=== PATIENT | female | born 1935 | race Caucasian/White ===

== ENCOUNTER 2019-09-03 13:04 | Emergency (ER) | payer MEDICARE ==
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
[2019-09-03 15:23] LABS: HEMATOCRIT 33.7 % (36.0-47.0); HEMOGLOBIN 10.6 g/dL (12.0-15.5); MEAN CORPUSCULAR HEMOGLOBIN 23.3 pg (27.0-33.4); MEAN CORPUSCULAR HGB CONC 31.4 g/dL (32.0-36.0); MEAN CORPUSCULAR VOLUME 74 fl (80-97); PLATELET COUNT 344 10^3/uL (150-450); RED BLOOD COUNT 4.53 10^6/uL (3.72-5.28); RED CELL DISTRIBUTION WIDTH 19.5 % (11.5-14.0); WHITE BLOOD COUNT 5.9 10^3/uL (4.0-10.5)
[2019-09-03 15:42] LABS: ALBUMIN 3.4 g/dL (3.5-5.0); ALKALINE PHOSPHATASE 118 U/L (38-126); ANION GAP 7 (5-19); ASPARTATE AMINO TRANSFERASE 54 U/L (14-36); BILIRUBIN,DIRECT 0.3 mg/dL (0.0-0.4); BILIRUBIN,TOTAL 1.2 mg/dL (0.2-1.3); BLOOD UREA NITROGEN 8 mg/dL (7-20); CALCIUM 8.9 mg/dL (8.4-10.2); CARBON DIOXIDE 27 mmol/L (22-30); CHLORIDE 107 mmol/L (98-107); CREATINE KINASE 365 U/L (30-135); GLUCOSE 89 mg/dL (75-110); POTASSIUM 4.2 mmol/L (3.6-5.0); TOTAL PROTEIN 7.4 g/dL (6.3-8.2)
[2019-09-03 15:45] LABS: ABSOLUTE LYMPHOCYTES# (MANUAL) 1.5 10^3/uL (0.5-4.7); ABSOLUTE MONOCYTES # (MANUAL) 0.6 10^3/uL (0.1-1.4); BASOPHILS % (MANUAL) 0 % (0-2); EOSINOPHILS % (MANUAL) 3 % (0-6); LYMPHOCYTES % (MANUAL) 25 % (13-45); MONOCYTES % (MANUAL) 10 % (3-13); SEGMENTED NEUTROPHILS % (MAN) 62 % (42-78); TOTAL CELLS COUNTED 100
[2019-09-03 15:46] LABS: ANISOCYTOSIS 2+; HYPOCHROMASIA 1+; TARGET CELLS 1+
[2019-09-03 15:47] LABS: PLATELET COMMENT ADEQUATE
[2019-09-03] MEDS: BUSPIRONE HCL 10 MG TABLET PO SCH ×2 (16:14→18:45)
[2019-09-03] MEDS: DIVALPROEX SODIUM 250 MG TABLET.DR PO SCH ×2 (16:15→18:45)
[2019-09-03 16:17] LABS: APPEARANCE,URINE CLEAR; BILIRUBIN,URINE NEGATIVE (NEGATIVE); COLOR,URINE YELLOW; GLUCOSE, URINE NEGATIVE (NEGATIVE); KETONES,URINE NEGATIVE (NEGATIVE); LEUKOCYTE ESTERASE,URINE MODERATE (NEGATIVE); NITRITE,URINE NEGATIVE (NEGATIVE); PROTEIN,URINE NEGATIVE (NEGATIVE)
--- NOTE | 2019-09-03 16:59 | PSYCHOLOGICAL NOTE ---
Psych Note - Psych Note Date seen by psych provider: 09/03/18 Psych Note: Medication recommendations per [facility]'s contracted psychiatrist, Dr. Lyndsay MD are as follows: 1. please stop any home psychiatric medications 2. Depakote 250mg twice daily for mood stabilization 3. Buspar 10mg twice daily for anxiety and agitation Diagnosis probable major neurocognitive disorder Impression/Plan: Patient is cleared from acute psychiatric services. 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 Medication recommendations have been provided. Per patient's daughter, the patient's was admitted to a [facility] yesterday. There is concern the patient is unable to care for herself; patient reportedly now lives in [place] alone. Her daughter lives in [place]. Per patient's daughter there is an open APS case. Dr. Hoyt was consulted on the care and management of this patient; attending physician is in agreement with recommendations and disposition.
--- NOTE | 2019-09-03 18:40 | EKG REPORT ---
SEVERITY:- ABNORMAL ECG - SINUS RHYTHM LEFT AXIS DEVIATION ABNRM R PROG, CONSIDER ASMI OR LEAD PLACEMENT BORDERLINE T ABNORMALITIES, ANTERIOR LEADS : Confirmed by: Kong Nava MD 03-Sep-2019 18:39:54
[2019-09-03] MEDS ORDERED: CYCLOBENZAPRINE HCL 10 MG TABLET PO PRN (20:17)
[2019-09-03] MEDS: METFORMIN HCL 500 MG TABLET PO SCH (21:28)
[2019-09-03] MEDS: RISPERIDONE 0.25 MG TABLET PO SCH (21:28)
[2019-09-04] MEDS ORDERED: LISINOPRIL 10 MG TABLET PO SCH (10:00)
[2019-09-04] MEDS ORDERED: PIOGLITAZONE HCL 15 MG TABLET PO SCH (10:00)
[2019-09-04] MEDS: METFORMIN HCL 500 MG TABLET PO SCH (10:32)
[2019-09-04] MEDS: DIVALPROEX SODIUM 250 MG TABLET.DR PO SCH (10:32)
[2019-09-04] MEDS: BUSPIRONE HCL 10 MG TABLET PO SCH (10:32)
[2019-09-04] MEDS: RISPERIDONE 0.25 MG TABLET PO SCH (10:32)
--- NOTE | 2019-09-04 10:33 | ER Document Report ---
Doctor's Note Notes: 09/04/19 10:33 84-year-old female presents to the emergency department with reports of hallucinations dementia. Behavioral health and social secretary have both evaluated patient. Patient's daughter is here to take patient home. She is updated on plan of care to include discharge home with community resources to include community paramedics Meals on Wheels. Priti the social secretary is arranging for the services. Patient is calm comfortable no distress. Patient will be discharged home under the care of her daughter. PHYSICAL EXAMINATION: GENERAL: Well-appearing and in no acute distress HEAD: Atraumatic, normocephalic. ENT: nares patent, Moist mucous membranes. NECK: Normal range of motion, supple LUNGS: Respiratory rate even unlabored HEART: Regular rate ABDOMEN: No complaints of abdominal pain eating drinking voiding without problems EXTREMITIES: Normal range of motion NEUROLOGICAL: Cranial nerves grossly intact. PSYCH: Normal mood, normal affect. Calm SKIN: Warm, Dry Patient discharged in the care of her daughter.
[2019-09-04] MEDS ORDERED: COLESTIPOL HCL 1 GM TABLET PO SCH (11:00)
[2019-09-04 11:01] VITALS: BP 117/60
== END 2019-09-04 10:58 | disposition home or self-care (01) ==
LOC: ER 13:04
DX: G30.1 Alzheimer's disease with late onset (principal); F02.81 Dementia in other diseases classified elsewhere, unspecified severity, with behavioral disturbance; S60.212A Contusion of left wrist, initial encounter; S50.02XA Contusion of left elbow, initial encounter; W18.30XA Fall on same level, unspecified, initial encounter; Y92.003 Bedroom of unspecified non-institutional (private) residence as the place of occurrence of the external cause; Z91.81 History of falling; E78.00 Pure hypercholesterolemia, unspecified; I10 Essential (primary) hypertension; E11.9 Type 2 diabetes mellitus without complications; Z60.2 Problems related to living alone
CPT/HCPCS: 93005; 99284; 36415; 82550; 83735; 84443; 85025; 80053; 81001; 84484; 93010; A9270 ×11; J3490

== ENCOUNTER 2019-12-02 11:33 | Inpatient (IN) | payer MEDICARE ==
[2019-12-02 12:13] LABS: ABSOLUTE LYMPHOCYTES (AUTO) 2.6 10^3/uL (0.5-4.7); ABSOLUTE MONOCYTES (AUTO) 2.1 10^3/uL (0.1-1.4); ABSOLUTE NEUT (AUTO) 9.5 10^3/uL (1.7-8.2); BASOPHILS % (AUTO) 0.3 % (0-2); HEMATOCRIT 33.8 % (36.0-47.0); HEMOGLOBIN 10.7 g/dL (12.0-15.5); LYMPHOCYTES % (AUTO) 18.3 % (13-45); MEAN CORPUSCULAR HEMOGLOBIN 24.3 pg (27.0-33.4); MEAN CORPUSCULAR HGB CONC 31.8 g/dL (32.0-36.0); MEAN CORPUSCULAR VOLUME 77 fl (80-97); MONOCYTES % (AUTO) 14.5 % (3-13); PLATELET COUNT 388 10^3/uL (150-450); RED BLOOD COUNT 4.42 10^6/uL (3.72-5.28); RED CELL DISTRIBUTION WIDTH 17.8 % (11.5-14.0); SEGMENTED NEUTROPHILS % (AUTO) 66.9 % (42-78); TOTAL CELLS COUNTED % (AUTO) 100 %; WHITE BLOOD COUNT 14.1 10^3/uL (4.0-10.5)
[2019-12-02] MEDS ORDERED: CEFEPIME 2 GM/D5W RTU 2 GM/50 ML RTUPB IV ONE (12:24)
[2019-12-02] MEDS ORDERED: NORMAL SALINE 1000 ML 1,000 ML IV ONE ×2 (12:24)
[2019-12-02] MEDS ORDERED: AZITHROMYCIN 250 MG TABLET PO ONE (12:24)
[2019-12-02 12:32] LABS: ALBUMIN 3.6 g/dL (3.5-5.0); ALKALINE PHOSPHATASE 142 U/L (38-126); ANION GAP 10 (5-19); ASPARTATE AMINO TRANSFERASE 35 U/L (14-36); BILIRUBIN,DIRECT 0.4 mg/dL (0.0-0.4); BILIRUBIN,TOTAL 1.2 mg/dL (0.2-1.3); BLOOD UREA NITROGEN 17 mg/dL (7-20); CALCIUM 8.9 mg/dL (8.4-10.2); CARBON DIOXIDE 24 mmol/L (22-30); CHLORIDE 102 mmol/L (98-107); GLUCOSE 166 mg/dL (75-110); POTASSIUM 4.5 mmol/L (3.6-5.0); TOTAL PROTEIN 7.8 g/dL (6.3-8.2)
[2019-12-02 12:38] LABS: INTERNATIONAL RATION (INR) 1.14; PROTHROMBIN TIME 14.7 SEC (11.4-15.4)
--- NOTE | 2019-12-02 13:13 | RADIOLOGY REPORT (SQ) ---
EXAM DESCRIPTION: CHEST SINGLE VIEW IMAGES COMPLETED DATE/TIME: 12/02/2019 1:03 pm REASON FOR STUDY: fever COMPARISON: None. EXAM PARAMETERS: NUMBER OF VIEWS: One view. TECHNIQUE: Single frontal radiographic view of the chest acquired. RADIATION DOSE: NA LIMITATIONS: None. FINDINGS: LUNGS AND PLEURA: No consolidation or effusions. No pneumothorax. Nodular opacity overly ing the right hemidiaphragm is consistent with confluence of shadows including an anterior rib. MEDIASTINUM AND HILAR STRUCTURES: No masses. Contour normal. HEART AND VASCULAR STRUCTURES: Heart normal in size. Normal vasculature. BONES: No acute findings. HARDWARE: None in the chest. OTHER: No other significant finding. IMPRESSION: NO ACUTE RADIOGRAPHIC FINDING IN THE CHEST. TECHNICAL DOCUMENTATION: JOB ID: [id number] 2010 [employer]- All Rights Reserved Reading location - IP/workstation name: [email or web address]
[2019-12-02 13:16] LABS: APPEARANCE,URINE SLIGHTLY-CLOUDY; BILIRUBIN,URINE NEGATIVE (NEGATIVE); COLOR,URINE YELLOW; GLUCOSE, URINE NEGATIVE (NEGATIVE); KETONES,URINE TRACE mg/dL (NEGATIVE); PROTEIN,URINE NEGATIVE (NEGATIVE); URINE SPECIFIC GRAVITY 1.015; UROBILINOGEN,URINE NEGATIVE mg/dL (<2.0)
[2019-12-02 13:31] LABS: VENOUS BLOOD BASE EXCESS 2.9 mmol/L; VENOUS BLOOD HCO3 26.8 mmol/L (20-32); VENOUS BLOOD PCO2 37.6 mmHg (35-63); VENOUS BLOOD PH 7.47 (7.30-7.42)
[2019-12-02 13:46] LABS: A TYPE INFLUENZA AG NEGATIVE (NEGATIVE); B INFLUENZA AG NEGATIVE (NEGATIVE)
--- NOTE | 2019-12-02 14:49 | ER Document Report ---
ED Fever - General Chief Complaint: Fever Stated Complaint: COUGH Time Seen by Provider: 12/02/19 12:00 Primary Care Provider: NOELLE HEREDIA MD [Primary Care Provider] - Follow up as needed Mode of Arrival: Medic Information source: Patient TRAVEL OUTSIDE OF THE [place] IN LAST 30 DAYS: No - HPI Notes: Patient is brought by ambulance from home for fever and altered mental status. Daughter states that patient has been staying with her while she awaits placement in a nursing care facility. She states for last 2 days patient has had some altered mental status. She states she has been more confused than normal. Patient does have baseline dementia and is a poor historian. Patient apparently today did develop fever and has had a cough at home. No known vomiting or diarrhea. No known rashes. No known falls or trauma. The symptoms have been mild to moderate apparently. There is no known radiation of symptoms. The symptoms have been intermittent. Nothing known that makes them better or worse. She did receive Tylenol prior to arrival. - Related Data Allergies/Adverse Reactions: No Known Allergies Allergy (Verified 12/02/19 12:27) Past Medical History - General Information source: Patient, Emergency Med Personnel - Social History Smoking Status: Never Smoker Frequency of alcohol use: None Drug Abuse: None Family History: Reviewed & Not Pertinent Patient has suicidal ideation: No Patient has homicidal ideation: No - Past Medical History Cardiac Medical History: Reports: Hx Hypercholesterolemia, Hx Hypertension Endocrine Medical History: Reports: Hx Diabetes Mellitus Type 2 Psychiatric Medical History: Reports: Hx Dementia Past Surgical History: Reports: Hx Cholecystectomy, Hx Herniorrhaphy, Hx Orthopedic Surgery, Other - Splenectomy Review of Systems - Review of Systems -: Yes ROS unobtainable due to patient's medical condition - Review of symptoms is unobtainable due to patient's dementia Physical Exam - Vital signs Vitals: Resp Pulse Ox 25 H 96 12/02/19 11:45 12/02/19 11:45 Interpretation: Normal - General General appearance: Appears well, Alert - HEENT Head: Normocephalic, Atraumatic Eyes: Normal Pupils: PERRL - Respiratory Respiratory status: No respiratory distress Chest status: Nontender Breath sounds: Normal Chest palpation: Normal - Cardiovascular Rhythm: Regular Heart sounds: Normal auscultation Murmur: No - Abdominal Inspection: Normal Distension: No distension Bowel sounds: Normal Tenderness: Nontender Organomegaly: No organomegaly - Back Back: Normal, Nontender - Extremities General upper extremity: Normal inspection, Nontender, Normal color, Normal ROM, Normal temperature General lower extremity: Normal inspection, Nontender, Normal color, Normal ROM, Normal temperature, Normal weight bearing. No: Prince's sign - Neurological Cognition: Confused Orientation: Disoriented to place, Disoriented to time [place] Coma Scale Eye Opening: Spontaneous [place] Coma Scale Verbal: Confused Jess Coma Scale Motor: Obeys Commands Jess Coma Scale Total: 14 Speech: Normal Motor strength normal: LUE, RUE, LLE, RLE Sensory: Normal - Psychological Associated symptoms: Normal affect, Normal mood - Skin Skin Temperature: Warm Skin Moisture: Dry Skin Color: Normal Course - Re-evaluation Re-evalutation: 12/02/19 15:00 Patient presents with altered mental status which daughter states is almost back to normal. It is hard for me to ascertain due to patient's underlying dementia. However patient is pleasant and talkative although confused. She does have fever without apparent source at this time. She has been covered with antibiotics. Coronavirus testing has been initiated. I have discussed the case with the hospitalist who is going to see the patient in consultation in the emergency department. - Vital Signs Vital signs: Temp Pulse Resp BP Pulse Ox 101 F H 18 155/79 H 95 12/02/19 12:46 12/02/19 14:01 12/02/19 14:01 12/02/19 14:01 - Laboratory Result Diagrams: 12/02/19 11:18 12/02/19 11:18 Laboratory results interpreted by me: 12/02/19 12/02/19 12/02/19 11:18 11:18 11:55 WBC 14.1 H Hgb 10.7 L Hct 33.8 L MCV 77 L MCH 24.3 L MCHC 31.8 L RDW 17.8 H Nye % (Auto) 14.5 H Absolute Neuts (auto) 9.5 H Absolute Monos (auto) 2.1 H VBG pH Sodium 136.3 L Glucose 166 H Lactic Acid 2.7 H Alkaline Phosphatase 142 H Urine Ketones 12/02/19 12/02/19 12:15 13:15 WBC Hgb Hct MCV MCH MCHC RDW Nye % (Auto) Absolute Neuts (auto) Absolute Monos (auto) VBG pH 7.47 H Sodium Glucose Lactic Acid Alkaline Phosphatase Urine Ketones TRACE H - Diagnostic Test Radiology reviewed: Image reviewed, Reports reviewed - Blood in urine though he said Discharge - Discharge Clinical Impression: Confusion Fever Qualifiers: Fever type: due to other condition Qualified Code(s): R50.81 - Fever presenting with conditions classified elsewhere Condition: Stable Disposition: ADMITTED INPATIENT Admitting Provider: Alexys (Hospitalist) Unit Admitted: Medical Floor Referrals: NOELLE HEREDIA MD [Primary Care Provider] - Follow up as needed
[2019-12-02] MEDS ORDERED: ACETAMINOPHEN 325 MG TABLET PO PRN ×2 (15:29)
[2019-12-02] MEDS ORDERED: ONDANSETRON HCL INJ/PF 4 MG/2 ML SDV IV PRN (15:29)
[2019-12-02] MEDS ORDERED: GLUCAGON,HUMAN RECOMB 1 MG INJ IM PRN (15:42)
[2019-12-02] MEDS ORDERED: DEXTROSE 40% GEL 15 GM TUBE PO PRN ×2 (15:42)
[2019-12-02] MEDS ORDERED: DEXTROSE 50%-WATER 25 GM/50 ML DISP.SYRIN IV PRN ×2 (15:42)
--- NOTE | 2019-12-02 16:18 | RADIOLOGY REPORT (SQ) ---
EXAM DESCRIPTION: CT HEAD WITHOUT IMAGES COMPLETED DATE/TIME: 12/02/2019 4:02 pm REASON FOR STUDY: falls, head lac, encephalopathy COMPARISON: None. TECHNIQUE: Axial images acquired through the brain without intravenous contrast. Images reviewed wi th bone, brain and subdural windows. Additional sagittal and coronal reconstructions were generated. Images stored on PACS. All CT scanners at this facility use dose modulation, iterative reconstruction, and/or weight based d osing when appropriate to reduce radiation dose to as low as reasonably achievable (ALARA). [facility]: Dose Right [facility]: CareDose [facility]: Dose Right [facility]: Teradose 4D [facility]: [employer] RADIATION DOSE: CT Rad equipment meets quality standard of care and radiation dose reduction techniq ues were employed. CTDIvol: 53.2 mGy. DLP: 1017 mGy-cm. mGy. LIMITATIONS: None. FINDINGS: VENTRICLES: Normal size and contour. CEREBRUM: No parenchymal hemorrhage. There are large bilateral subdural hematomas with varying ages of blood products. There is acute blood anteriorly on the right. Layering chronic blood products bi lateral posteriorly and evidence of old hemorrhage. Slight midline shift from left to right. CEREBELLUM: No masses. No hemorrhage. No alteration of density. No evidence for acute infarction. EXTRAAXIAL SPACES: As above. ORBITS AND GLOBE: No intra- or extraconal masses. Normal contour of globe without masses. CALVARIUM: No fracture. PARANASAL SINUSES: No fluid or mucosal thickening. SOFT TISSUES: No mass or hematoma. OTHER: No other significant finding. IMPRESSION: Large bilateral subdural hematomas with varying age blood products as described. No sku ll fracture. Mild midline shift from right to left due to the size of the right subdural hematoma co mpared to the left. The right subdural hematoma measures up to 2.6 cm. The left measures up to 1.8 cm. EVIDENCE OF ACUTE STROKE: NO. COMMENT: Pertinent findings on the imaging study reported as a CRITICAL RESULT to LARA Prakash at16:11 on 12/02/2019. Category of Critical Result: Bilateral subdural hematomas. Quality ID # 436: Final reports with documentation of one or more dose reduction techniques (e.g., Au tomated exposure control, adjustment of the mA and/or kV according to patient size, use of iterative reconstruction technique) TECHNICAL DOCUMENTATION: JOB ID: [id number] 2010 [employer]- All Rights Reserved Reading location - IP/workstation name: [email or web address]
--- NOTE | 2019-12-02 16:23 | EKG REPORT ---
SEVERITY:- ABNORMAL ECG - SINUS RHYTHM VENTRICULAR PREMATURE COMPLEX LEFT ATRIAL ABNORMALITY LEFT AXIS DEVIATION : Confirmed by: Randy Key 02-Dec-2019 16:22:19
--- NOTE | 2019-12-02 16:41 | PDOC H&P ---
History of Present Illness Admission Date/PCP: 12/02/19 15:11 NOELLE HEREDIA MD Patient complains of: Altered mental status History of Present Illness: CHEY DENISE is a 84 year old female with a history of Alzheimer's dementia, diabetes mellitus type 2, hypertension, presents to the hospital via EMS for evaluation of altered mental status and fever. Patient lives with her daughter. Unable to obtain history from patient given mental status so HPI ob tained from patient's daughter Gianna via phone call. 5 days ago, patient began exhibiting symptoms of fatigue, talking less and becoming more apathetic. She also was experiencing falls frequently. Patient did not seem to care about the fact that she was falling more often and in some occasions hit her head. Patient's daughter called EMS over the weekend after patient experienced a fall and patient was recommended for monitoring at home. Yesterday, patient became more altered and was noted to be tachypneic. EMS was called again and patient was noted to be having a fever of 101F. According to daughter, patient has not exhibited any significant respiratory symptoms and denies any rhinorrhea, cough, shortness of breath, nasal congestion. Did have some diarrhea. Of note, patient's daughter expresses that her plan was to send patient to an assisted living facility to care for her but after they found out that patient's son had flown in from [place], the assisted living facility who requested a 14-day quarantine before patient could be admitted into assisted living. Patient's son has since then flown back and patient has been a 14-day quarantine which was about to end before fifth patient developed a fever. Patient daughter and son have not had any respiratory symptoms or fever since the visit. Past Medical History Cardiac Medical History: Reports: Hyperlipidema, Hypertension Endocrine Medical History: Reports: Diabetes Mellitus Type 2 Psychiatric Medical History: Reports: Dementia Past Surgical History Past Surgical History: Reports: Cholecystectomy, Herniorrhaphy, Orthopedic Surgery, Other - Splenectomy Social History Smoking Status: Never Smoker - Advance Directive Resuscitation Status: Do Not Resuscitate - dnr/dni confirmed by Daughter Surrogate healthcare decision maker:: Gianna Denise Family History Family History: Hypertension Parental Family History Reviewed: Yes Children Family History Reviewed: Unknown Sibling(s) Family History Reviewed.: Unknown Medication/Allergy Home Medications: Cholecalciferol (Vitamin D3) [Vitamin D3 1000 Unit Tablet] 2,000 unit PO DAILY 03/31/20 Colestipol HCl [Colestid 1 gm Tablet] 1 gm PO BID 12/02/19 Cyclobenzaprine HCl 5 mg PO QHS 12/02/19 Lisinopril 20 mg PO DAILY 12/02/19 Metformin HCl [Glucophage 500 mg Tablet] 1,000 mg PO BIDACBS 12/02/19 Pioglitazone HCl [Actos 15 mg Tablet] 15 mg PO DAILY 12/02/19 Allergies/Adverse Reactions: No Known Allergies Allergy (Verified 12/02/19 12:27) Review of Systems ROS unobtainable: Due to mental status Physical Exam Vital Signs: Temp Pulse Resp BP Pulse Ox 98.8 F 24 H 151/72 H 96 12/02/19 15:01 12/02/19 15:01 12/02/19 15:01 12/02/19 15:01 Intake & Output 12/01/19 12/02/19 12/03/19 06:59 06:59 06:59 Intake Total 2049 Balance 2049 Weight 79.9 kg General appearance: PRESENT: no acute distress, well-nourished Mouth exam: PRESENT: neck supple Neck exam: ABSENT: JVD Respiratory exam: PRESENT: clear to auscultation jose alfredo, tachypnea - mild tachypnea, unlabored. ABSENT: accessory muscle use, retraction Cardiovascular exam: PRESENT: +S1, +S2, systolic murmur - rusb GI/Abdominal exam: PRESENT: soft. ABSENT: rebound, rigid, tenderness Extremities exam: ABSENT: pedal edema Neurological exam: PRESENT: alert, awake, oriented to person, other - Does not interact much during interview but awake and smiling. ABSENT: oriented to place, oriented to time, oriented to situation Psychiatric exam: PRESENT: unusual affect. ABSENT: agitated, anxious Focused psych exam: ABSENT: pressured speech Skin exam: ABSENT: jaundice Results Laboratory Results: 12/02/19 11:18 12/02/19 11:18 12/02/19 12/02/19 12/02/19 11:18 11:18 11:55 WBC 14.1 H RBC 4.42 Hgb 10.7 L Hct 33.8 L MCV 77 L MCH 24.3 L MCHC 31.8 L RDW 17.8 H Plt Count 388 Seg Neutrophils % 66.9 VBG pH VBG pCO2 VBG HCO3 VBG Base Excess Sodium 136.3 L Potassium 4.5 Chloride 102 Carbon Dioxide 24 Anion Gap 10 BUN 17 Creatinine 0.56 Est GFR ( Amer) > 60 Glucose 166 H Lactic Acid 2.7 H Calcium 8.9 Total Bilirubin 1.2 AST 35 Alkaline Phosphatase 142 H Total Protein 7.8 Albumin 3.6 Urine Color Urine Appearance Urine pH Ur Specific [place] Urine Protein Urine Glucose (UA) Urine Ketones Urine Blood Urine RBC (Auto) 12/02/19 12/02/19 12:15 13:15 WBC RBC Hgb Hct MCV MCH MCHC RDW Plt Count Seg Neutrophils % VBG pH 7.47 H VBG pCO2 37.6 VBG HCO3 26.8 VBG Base Excess 2.9 Sodium Potassium Chloride Carbon Dioxide Anion Gap BUN Creatinine Est GFR ( Amer) Glucose Lactic Acid Calcium Total Bilirubin AST Alkaline Phosphatase Total Protein Albumin Urine Color YELLOW Urine Appearance SLIGHTLY-CLOUDY Urine pH 6.0 Ur Specific [place] 1.015 Urine Protein NEGATIVE Urine Glucose (UA) NEGATIVE Urine Ketones TRACE H Urine Blood NEGATIVE Urine RBC (Auto) 0 12/02/19 11:18 Troponin I < 0.012 Impressions: Chest X-Ray 12/02/19 12:22 IMPRESSION: NO ACUTE RADIOGRAPHIC FINDING IN THE CHEST. Assessment and Plan - Diagnosis (1) Subdural hematoma, post-traumatic Qualifiers: Encounter type: initial encounter Loss of consciousness presence/duration: without LOC Qualified Code(s): S06.5X0A - Traumatic subdural hemorrhage without loss of consciousness, initial encounter Is this a current diagnosis for this admission?: Yes Plan: Obtained CT head upon admission to evaluate patient for given patient's facial laceration. Head CT shows large b/l subdural hematomas 25.9 mm on the right and 18.2 mm on the left with right to left shift of the lateral ventricle. Predisposed by Alzheimer's dementia with brain atrophy and frequent falls. Neurochecks, control blood pressure with IV meds to keep SBP less than 160. No evidence of coagulopathy. Consulting with neurosurgery at [facility] and [facility] for potential transfer. Neurosurgery at [facility] Judson Martinez PA-c working with Dr Hussein Hancock recommending comfort care/hospice and declining transfer stating that patient does not need m onitoring for this as no surgical intervention will be done. I will discuss with neurosurgery at [facility] for 2nd opinion. (2) Fever Qualifiers: Fever type: unspecified Qualified Code(s): R50.9 - Fever, unspecified Is this a current diagnosis for this admission?: Yes Plan: Likely 2/2 Large bilateral Subdural hematoma Chest x-ray showing no pneumonia. Urinalysis negative. Influenza negative. COVID-19 swab obtained in the ED but I have canceled it as patient has no respiratory symptoms and no evidence of pneumonia on chest imaging. Tylenol prn (3) Acute metabolic encephalopathy Is this a current diagnosis for this admission?: Yes Plan: Secondary to brain bleed. Neurochecks. (4) Diabetes mellitus type 2 in nonobese Is this a current diagnosis for this admission?: Yes Plan: Sliding scale insulin. Accu-Cheks. (5) Frequent falls Is this a current diagnosis for this admission?: Yes Plan: Has had frequent falls with facial laceration. Head CT done to evaluate this shows brain bleed. Fall precautions. (6) Dementia in Alzheimer's disease Is this a current diagnosis for this admission?: Yes - Time Time Spent with patient: 35 or more minutes
[2019-12-02] MEDS: INSULIN LISPRO 100 UNIT/ML 3 ML VIAL SUBCUT SCH ×2 (16:53→22:44)
[2019-12-02] MEDS ORDERED: LABETALOL HCL INJ 20 MG/4 ML DISP.SYRIN IV PRN (17:09)
--- NOTE | 2019-12-02 17:46 | Progress Note ---
Provider Note Provider Note: Images forwarded to both hospital Discussed case with neurosurgery at both [facility] and Dr. Allred at [facility] and they both recommend hospice care and no intervention. Neurosurgery from [facility] also spoke directly with patient's daughter and I have spoke with patient's daughter and patient's daughter Gianna is agreeable to hospice care. We will proceed with hospice care and comfort care. I will transfer patient of the Covid unit as patient's fever is for her large subdural hematomas and as she lacks respiratory symptoms and does not have any known exposures and chest x-ray shows no pneumonia, there is no indication for COVID test at this time.
[2019-12-02] MEDS: ACETAMINOPHEN 325 MG TABLET PO PRN (18:00)
[2019-12-02] MEDS ORDERED: ACETAMINOPHEN 650 MG SUPP.RECT PR PRN (18:20)
--- NOTE | 2019-12-02 18:26 | ADVANCED CARE ---
- Diagnosis (1) Subdural hematoma, post-traumatic Diagnosis Current: Yes (3) Acute metabolic encephalopathy Diagnosis Current: Yes (6) Dementia in Alzheimer's disease Diagnosis Current: Yes Resuscitation Status: Do Not Resuscitate - dnr/dni confirmed by Daughter Discussion: I had a thorough discussion with patient's daughter and ARCADIO Saunders regarding patient's current condition. I outlined my conversation with the neurosurgery specialists from both [facility] and [facility] and their recommendations for hospice care as they stated that patient was unlikely to improve given her already compromised cognitive state and has large hematomas and that they recommended no interventions. I also had neurosurgery from [facility] discussed with patient's daughter directly. After conversations, patient's daughter has opted for hospice care and would like to maintain DNR/DNI status and initiate comfort care only immediately. Her wishes will be respected. Time Spent: 25mins
[2019-12-02] MEDS: MORPHINE SULFATE 10 MG/ML INJ IV PRN (20:50)
[2019-12-02] MEDS ORDERED: CEFEPIME 2 GM/D5W RTU 2 GM/50 ML RTUPB IV SCH (22:00)
[2019-12-03] MEDS ORDERED: AZITHROMYCIN INJ 500 MG VIAL IV SCH (10:00)
[2019-12-03] MEDS ORDERED: ENOXAPARIN SODIUM INJ 40 MG/0.4 ML DISP.SYRIN SUBCUT SCH (10:00)
[2019-12-03] MEDS ORDERED: AZITHROMYCIN 500 MG in DEXTROSE 5%-WATER 250 ML IV SCH (10:00)
[2019-12-03] MEDS: INSULIN LISPRO 100 UNIT/ML 3 ML VIAL SUBCUT SCH ×4 (13:45→22:21)
--- NOTE | 2019-12-03 13:54 | PDOC PROGRESS REPORT ---
Subjective Progress Note for:: 12/03/19 Subjective:: The patient is resting comfortably in bed. Her appetite has been poor. She has no acute complaints. She is comfort care at this time. Reason For Visit: FEVER Physical Exam Vital Signs: Temp Pulse Resp BP Pulse Ox 101.7 F H 69 18 132/47 H 100 12/02/19 20:37 12/03/19 07:41 12/03/19 07:41 12/03/19 07:41 12/03/19 07:41 Intake & Output 12/02/19 12/03/19 12/04/19 06:59 06:59 06:59 Intake Total 2049 Balance 2049 Weight 79.9 kg General appearance: PRESENT: no acute distress, cooperative, well-developed Head exam: PRESENT: atraumatic, normocephalic Respiratory exam: PRESENT: clear to auscultation jose alfredo, symmetrical, unlabored. ABSENT: prolonged expiratory phas, rales, rhonchi, tachypnea Cardiovascular exam: PRESENT: RRR, +S1, +S2 GI/Abdominal exam: PRESENT: normal bowel sounds, soft. ABSENT: distended, guarding, tenderness Rectal exam: PRESENT: deferred Neurological exam: PRESENT: alert, awake, oriented to person, oriented to place, oriented to situation Focused psych exam: ABSENT: delusional, restlessness Results Laboratory Results: 12/02/19 11:18 12/02/19 11:18 12/02/19 14:30 Lactic Acid 2.1 12/02/19 11:18 Blood Blood Culture (PCR) - Final Staphylococcus Species 12/02/19 11:18 Troponin I < 0.012 Impressions: Head CT 12/02/19 00:00 IMPRESSION: Large bilateral subdural hematomas with varying age blood products as described. No skull fracture. Mild midline shift from right to left due to the size of the right subdural hematoma compared to the left. The right subdural hematoma measures up to 2.6 cm. The left measures up to 1.8 cm. EVIDENCE OF ACUTE STROKE: NO. Chest X-Ray 12/02/19 12:22 IMPRESSION: NO ACUTE RADIOGRAPHIC FINDING IN THE CHEST. Assessment and Plan - Diagnosis (1) Subdural hematoma, post-traumatic Qualifiers: Encounter type: initial encounter Loss of consciousness presence/duration: without LOC Qualified Code(s): S06.5X0A - Traumatic subdural hemorrhage withou t loss of consciousness, initial encounter Is this a current diagnosis for this admission?: Yes Plan: Obtained CT head upon admission to evaluate patient for given patient's facial laceration. Head CT shows large b/l subdural hematomas 25.9 mm on the right and 18.2 mm on the left with right to left shift of the lateral ventricle. Predisposed by Alzheimer's dementia with brain atrophy and frequent falls. Neurochecks, control blood pressure with IV meds to keep SBP less than 160. No evidence of coagulopathy. Consulting with neurosurgery at [facility] and [facility] for potential transfer. Neurosurgery at [facility] Judson Martinez PA-c working with Dr Hussein Hancock recommending comfort care/hospice and declining transfer stating that patient does not need monitoring for this as no surgical intervention will be done. I will discuss with neurosurgery at [facility] for 2nd opinion. December 03, 2019 As noted above no surgical intervention. Currently comfort care measures. (2) Fever Qualifiers: Fever type: unspecified Qualified Code(s): R50.9 - Fever, unspecified Is this a current diagnosis for this admission?: Yes Plan: Likely 2/2 Large bilateral Subdural hematoma Chest x-ray showing no pneumonia. Urinalysis negative. Influenza negative. COVID-19 swab obtained in the ED but I have canceled it as patient has no respiratory symptoms and no evidence of pneumonia on chest imaging. Tylenol prn December 03, 2019 Continue Tylenol for comfort. It is possible that there is an infection however the gram-positive cocci in the blood culture bottle is coagulase-negative staph which is usually considered a contaminant. Urinalysis was negative. Chest x- ray was negative. (3) Acute metabolic encephalopathy Is this a current diagnosis for this admission?: Yes Plan: Secondary to brain bleed. Neurochecks. December 03, 2019 As above (4) Hyperglycemia due to type 2 diabetes mellitus Qualifiers: Diabetes mellitus termination clerk insulin use: without shelter use Qualified Code(s): E11.65 - Type 2 diabetes mellitus with hyperglycemia Is this a current diagnosis for this admission?: Yes Plan: December 03, 2019 Accu-Cheks with sliding scale insulin. If the patient is truly comfort care I will discontinue these orders. I will discuss it with the patient's daughter. (5) Frequent falls Is this a current diagnosis for this admission?: Yes Plan: Has had frequent falls with facial laceration. Head CT done to evaluate this shows brain bleed. Fall precautions. December 03, 2019 As patient is comfort care there will be no physical therapy evaluation. (6) Dementia in Alzheimer's disease Is this a current diagnosis for this admission?: Yes Plan: December 03, 2019 Continue supportive care - Time Time Spent with patient: 15-24 minutes Medications reviewed and adjusted accordingly: Yes Anticipated discharge: Hospice
[2019-12-03] MEDS: MORPHINE SULFATE 10 MG/ML INJ IV PRN (14:34)
[2019-12-04] MEDS: MORPHINE SULFATE 10 MG/ML INJ IV PRN (02:18)
[2019-12-04] MEDS: INSULIN LISPRO 100 UNIT/ML 3 ML VIAL SUBCUT SCH ×4 (10:07→22:17)
--- NOTE | 2019-12-04 10:58 | PDOC PROGRESS REPORT ---
Subjective Progress Note for:: 12/04/19 Subjective:: The patient once again is participating in conversation. Her dementia is clearly present but she is attempting to make meaningful conversation. Upon consideration I am going to revoke the comfort care measures. I will ask physical therapy to see the patient. Based on their assessment we will determine if in fact she is rehab above in which case we will pursue skilled rehab at least for short-term. The patient did report to nursing that she has pain in her right wrist. Reason For Visit: FEVER Physical Exam Vital Signs: Temp Pulse Resp BP Pulse Ox 98.6 F 87 16 178/82 H 92 12/04/19 08:00 12/04/19 08:00 12/04/19 08:00 12/04/19 08:00 12/04/19 08:00 Intake & Output 12/03/19 12/04/19 12/05/19 06:59 06:59 06:59 Intake Total 2049 Balance 2049 Weight 79.9 kg General appearance: PRESENT: cooperative, well-developed Head exam: PRESENT: atraumatic, normocephalic Ear exam: PRESENT: normal external ear exam. ABSENT: bleeding, drainage Mouth exam: PRESENT: moist, tongue midline Respiratory exam: PRESENT: clear to auscultation jose alfredo, symmetrical, unlabored. ABSENT: rales, rhonchi, tachypnea Cardiovascular exam: PRESENT: RRR, +S1, +S2 GI/Abdominal exam: PRESENT: normal bowel sounds, soft. ABSENT: distended, guarding, tenderness Rectal exam: PRESENT: deferred Extremities exam: PRESENT: other - Pain and tenderness in the right wrist. There is swelling but no significant ecchymosis. She has decreased range of motion.. ABSENT: pedal edema Musculoskeletal exam: PRESENT: normal inspection. ABSENT: deformity Neurological exam: PRESENT: alert, awake, oriented to person Psychiatric exam: ABSENT: agitated, anxious Results Laboratory Results: 12/02/19 11:18 12/02/19 11:18 12/02/19 11:18 Blood Blood Culture (PCR) - Final Staphylococcus Species 12/02/19 11:18 Troponin I < 0.012 Impressions: Head CT 12/02/19 00:00 IMPRESSION: Large bilateral subdural hematomas with varying age blood products as described. No skull fracture. Mild midline shift from right to left due to the size of the right subdural hematoma compared to the left. The right subdural hematoma measures up to 2.6 cm. The left measures up to 1.8 cm. EVIDENCE OF ACUTE STROKE: NO. Chest X-Ray 12/02/19 12:22 IMPRESSION: NO ACUTE RADIOGRAPHIC FINDING IN THE CHEST. Assessment and Plan - Diagnosis (1) Subdural hematoma, post-traumatic Qualifiers: Encounter type: initial encounter Loss of consciousness presence/duration: without LOC Qualified Code(s): S06.5X0A - Traumatic subdural hemorrhage without loss of consciousness, initial encounter Is this a current diagnosis for this admission?: Yes Plan: Obtained CT head upon admission to evaluate patient for given patient's facial laceration. Head CT shows large b/l subdural hematomas 25.9 mm on the right and 18.2 mm on the left with right to left shift of the lateral ventricle. Predisposed by Alzheimer's dementia with brain atrophy and frequent falls. Neurochecks, control blood pressure with IV meds to keep SBP less than 160. No evidence of coagulopathy. Consulting with neurosurgery at [facility] and [facility] for potential transfer. Neurosurgery at [facility] Judson Martinez PA-c working with Dr Hussein Hancock recommending comfort care/hospice and declining transfer stating that patient does not need monitoring for this as no surgical intervention will be done. I will discuss with neurosurgery at [facility] for 2nd opinion. December 03, 2019 As noted above no surgical intervention. Currently comfort care measures. 12/04/2019 Patient remained stable. No need to reimage the hematomas. Comfort care measures discontinued. Regular medications resumed. (2) Fever Qualifiers: Fever type: unspecified Qualified Code(s): R50.9 - Fever, unspecified Is this a current diagnosis for this admission?: Yes Plan: Likely 2/2 Large bilateral Subdural hematoma Chest x-ray showing no pneumonia. Urinalysis negative. Influenza negative. COVID-19 swab obtained in the ED but I have canceled it as patient has no respir atory symptoms and no evidence of pneumonia on chest imaging. Tylenol prn December 03, 2019 Continue Tylenol for comfort. It is possible that there is an infection however the gram-positive cocci in the blood culture bottle is coagulase-negative staph which is usually considered a contaminant. Urinalysis was negative. Chest x- ray was negative. December 04, 2019 The dorsum of the right wrist is somewhat swollen and tender. The patient does have some cuts on her hand. Is unclear if this is infectious or if during 1 of her falls she has sustained a fracture. I will start antibiotic therapy to cover the possibility of infection. (3) Acute metabolic encephalopathy Is this a current diagnosis for this admission?: Yes Plan: Secondary to brain bleed. Neurochecks. December 03, 2019 As above 12/04/2019 The encephalopathy was due to the acute subdural hematomas. She has cleared and appears to be back at baseline. (4) Hyperglycemia due to type 2 diabetes mellitus Qualifiers: Diabetes mellitus shelter insulin use: without shelter use Qualified Code(s): E11.65 - Type 2 diabetes mellitus with hyperglycemia Is this a current diagnosis for this admission?: Yes Plan: December 03, 2019 Accu-Cheks with sliding scale insulin. If the patient is truly comfort care I will discontinue these orders. I will discuss it with the patient's daughter. 12/04/2019 Good control. Continue current regimen. (5) Frequent falls Is this a current diagnosis for this admission?: Yes Plan: Has had frequent falls with facial laceration. Head CT done to evaluate this shows brain bleed. Fall precautions. December 03, 2019 As patient is comfort care there will be no physical therapy evaluation. 12/04/2019 Physical therapy did assess the patient. They feel that she would benefit from ongoing therapy. (6) Dementia in Alzheimer's disease Is this a current diagnosis for this admission?: Yes Plan: December 03, 2019 Continue supportive care December 04, 2019 Continue supportive care (7) Right wrist pain Is this a current diagnosis for this admission?: Yes Plan: 12/04/2019 X-ray revealed no fracture. There is osteopenia as well as severe osteoarthritis. Will discuss with occupational therapy to see if she might benefit from a splint. Pain management as prescribed. - Time Time Spent with patient: 15-24 minutes Anticipated discharge: SNF
[2019-12-04 11:32] LABS: ABSOLUTE BASOPHILS # (AUTO) 0.1 10^3/uL (0.0-0.2); ABSOLUTE MONOCYTES (AUTO) 0.9 10^3/uL (0.1-1.4); ABSOLUTE NEUT (AUTO) 7.5 10^3/uL (1.7-8.2); BASOPHILS % (AUTO) 0.5 % (0-2); EOSINOPHILS % (AUTO) 0.2 % (0-6); HEMATOCRIT 32.9 % (36.0-47.0); HEMOGLOBIN 10.6 g/dL (12.0-15.5); LYMPHOCYTES % (AUTO) 18.8 % (13-45); MEAN CORPUSCULAR HEMOGLOBIN 24.8 pg (27.0-33.4); MEAN CORPUSCULAR HGB CONC 32.2 g/dL (32.0-36.0); MEAN CORPUSCULAR VOLUME 77 fl (80-97); MONOCYTES % (AUTO) 8.8 % (3-13); PLATELET COUNT 359 10^3/uL (150-450); RED BLOOD COUNT 4.27 10^6/uL (3.72-5.28); RED CELL DISTRIBUTION WIDTH 18.2 % (11.5-14.0); SEGMENTED NEUTROPHILS % (AUTO) 71.7 % (42-78); TOTAL CELLS COUNTED % (AUTO) 100 %; WHITE BLOOD COUNT 10.5 10^3/uL (4.0-10.5)
[2019-12-04 11:54] LABS: ANION GAP 5 (5-19); BLOOD UREA NITROGEN 16 mg/dL (7-20); CALCIUM 8.7 mg/dL (8.4-10.2); CARBON DIOXIDE 25 mmol/L (22-30); CHLORIDE 109 mmol/L (98-107); GLUCOSE 138 mg/dL (75-110); POTASSIUM 3.9 mmol/L (3.6-5.0)
[2019-12-04] MEDS: LISINOPRIL 10 MG TABLET PO SCH (12:12)
[2019-12-04] MEDS: NORMAL SALINE 1000 ML 1,000 ML IV PRN ×2 (12:13→17:31)
--- NOTE | 2019-12-04 14:00 | RADIOLOGY REPORT (SQ) ---
EXAM DESCRIPTION: WRIST RIGHT 2 VIEWS IMAGES COMPLETED DATE/TIME: 12/04/2019 12:38 pm REASON FOR STUDY: Swollen and tender he had right wrist. No reported injury COMPARISON: None. NUMBER OF VIEWS: Two views TECHNIQUE: AP and lateral radiographic images acquired of the right wrist. LIMITATIONS: None. FINDINGS: MINERALIZATION: Osteopenia. BONES: There is no acute fracture or cortical disruption. Severe osteoarthritis at the 1st digit car pometacarpal joint with joint space narrowing, subchondral sclerosis and bony remodeling. Subchondra l cystic change at the lunate and capitate. SOFT TISSUES: Dorsal soft tissue swelling. OTHER: No other significant finding. IMPRESSION: 1. No acute fracture or dislocation of the right wrist. 2. Moderate to severe osteopenia. 3. 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 Moderate osteoarthritis at the mid carpus. Associated soft tissue swelling. TECHNICAL DOCUMENTATION: JOB ID: [id number] 2010 [employer]- All Rights Reserved Reading location - IP/workstation name: [email or web address]
[2019-12-04] MEDS: AMPICILLIN SODIUM/SULBACTAM NA 1.5 GM in NORMAL SALINE 50 ML IV SCH ×2 (14:27→22:19)
[2019-12-04] MEDS: METFORMIN HCL 500 MG TABLET PO SCH (16:02)
[2019-12-04] MEDS: COLESTIPOL HCL 1 GM TABLET PO SCH (17:30)
[2019-12-04] MEDS ORDERED: NORMAL SALINE 500 ML IV ONE (18:00)
[2019-12-05] MEDS: NORMAL SALINE 1000 ML 1,000 ML IV PRN ×3 (01:23→18:47)
[2019-12-05] MEDS: AMPICILLIN SODIUM/SULBACTAM NA 1.5 GM in NORMAL SALINE 50 ML IV SCH (03:28)
[2019-12-05 05:25] LABS: ABSOLUTE BASOPHILS # (AUTO) 0.1 10^3/uL (0.0-0.2); ABSOLUTE EOSINOPHILS # (AUTO) 0.1 10^3/uL (0.0-0.6); ABSOLUTE LYMPHOCYTES (AUTO) 1.5 10^3/uL (0.5-4.7); ABSOLUTE MONOCYTES (AUTO) 1.1 10^3/uL (0.1-1.4); ABSOLUTE NEUT (AUTO) 6.8 10^3/uL (1.7-8.2); BASOPHILS % (AUTO) 0.7 % (0-2); EOSINOPHILS % (AUTO) 0.5 % (0-6); HEMATOCRIT 30.4 % (36.0-47.0); HEMOGLOBIN 9.8 g/dL (12.0-15.5); LYMPHOCYTES % (AUTO) 15.2 % (13-45); MEAN CORPUSCULAR HEMOGLOBIN 24.6 pg (27.0-33.4); MEAN CORPUSCULAR HGB CONC 32.1 g/dL (32.0-36.0); MEAN CORPUSCULAR VOLUME 77 fl (80-97); MONOCYTES % (AUTO) 11.7 % (3-13); PLATELET COUNT 316 10^3/uL (150-450); RED BLOOD COUNT 3.97 10^6/uL (3.72-5.28); RED CELL DISTRIBUTION WIDTH 17.8 % (11.5-14.0); SEGMENTED NEUTROPHILS % (AUTO) 71.9 % (42-78); TOTAL CELLS COUNTED % (AUTO) 100 %; WHITE BLOOD COUNT 9.5 10^3/uL (4.0-10.5)
[2019-12-05 05:43] LABS: ANION GAP 6 (5-19); BLOOD UREA NITROGEN 12 mg/dL (7-20); CALCIUM 8.2 mg/dL (8.4-10.2); CARBON DIOXIDE 23 mmol/L (22-30); CHLORIDE 110 mmol/L (98-107); GLUCOSE 125 mg/dL (75-110); POTASSIUM 3.7 mmol/L (3.6-5.0)
--- NOTE | 2019-12-05 09:31 | PDOC PROGRESS REPORT ---
Subjective Progress Note for:: 12/05/19 Subjective:: The patient is resting in bed. Once again she is awake and alert and conversant. Answers and conversation are still consistent with her underlying dementia. Reason For Visit: FEVER Physical Exam Vital Signs: Temp Pulse Resp BP Pulse Ox 98.4 F 77 18 166/72 H 98 12/05/19 07:19 12/05/19 07:19 12/05/19 07:19 12/05/19 07:19 12/05/19 07:19 Intake & Output 12/04/19 12/05/19 12/06/19 06:59 06:59 06:59 Intake Total 2263 Balance 2263 General appearance: PRESENT: no acute distress, cooperative, well-developed Head exam: PRESENT: atraumatic, normocephalic Ear exam: PRESENT: normal external ear exam. ABSENT: bleeding, drainage Teeth exam: PRESENT: poor dentation Respiratory exam: PRESENT: clear to auscultation jose alfredo, symmetrical, unlabored. ABSENT: rales, rhonchi, tachypnea, wheezes Cardiovascular exam: PRESENT: RRR, +S1, +S2 GI/Abdominal exam: PRESENT: normal bowel sounds, soft. ABSENT: distended, tenderness Neurological exam: PRESENT: alert, awake, oriented to person Psychiatric exam: ABSENT: agitated, anxious Results Laboratory Results: 12/05/19 04:46 12/05/19 04:46 12/04/19 12/04/19 12/05/19 11:21 11:21 04:46 WBC 10.5 9.5 RBC 4.27 3.97 Hgb 10.6 L 9.8 L Hct 32.9 L 30.4 L MCV 77 L 77 L MCH 24.8 L 24.6 L MCHC 32.2 32.1 RDW 18.2 H 17.8 H Plt Count 359 316 Seg Neutrophils % 71.7 71.9 Sodium 139.3 Potassium 3.9 Chloride 109 H Carbon Dioxide 25 Anion Gap 5 BUN 16 Creatinine 0.40 L Est GFR ( Amer) > 60 Glucose 138 H Calcium 8.7 Magnesium 2.0 12/05/19 04:46 WBC RBC Hgb Hct MCV MCH MCHC RDW Plt Count Seg Neutrophils % Sodium 138.8 Potassium 3.7 Chloride 110 H Carbon Dioxide 23 Anion Gap 6 BUN 12 Creatinine 0.35 L Est GFR ( Amer) > 60 Glucose 125 H Calcium 8.2 L Magnesium 1.9 12/02/19 11:18 Blood Blood Culture (PCR) - Final Staphylococcus Species 12/02/19 11:18 Troponin I < 0.012 Impressions: Head CT 12/02/19 00:00 IMPRESSION: Large bilateral subdural hematomas with varying age blood products as described. No skull fracture. Mild midline shift from right to left due to the size of the right subdural hematoma compared to the left. The right ruff bdural hematoma measures up to 2.6 cm. The left measures up to 1.8 cm. EVIDENCE OF ACUTE STROKE: NO. Chest X-Ray 12/02/19 12:22 IMPRESSION: NO ACUTE RADIOGRAPHIC FINDING IN THE CHEST. Wrist X-Ray 12/04/19 00:00 IMPRESSION: 1. No acute fracture or dislocation of the right wrist. 2. Moderate to severe osteopenia. 3. 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 Moderate osteoarthritis at the mid carpus. Associated soft tissue swelling. Assessment and Plan - Diagnosis (1) Subdural hematoma, post-traumatic Qualifiers: Encounter type: initial encounter Loss of consciousness presence/duration: without LOC Qualified Code(s): S06.5X0A - Traumatic subdural hemorrhage without loss of consciousness, initial encounter Is this a current diagnosis for this admission?: Yes Plan: Obtained CT head upon admission to evaluate patient for given patient's facial laceration. Head CT shows large b/l subdural hematomas 25.9 mm on the right and 18.2 mm on the left with right to left shift of the lateral ventricle. Predisposed by Alzheimer's dementia with brain atrophy and frequent falls. Neurochecks, control blood pressure with IV meds to keep SBP less than 160. No evidence of coagulopathy. Consulting with neurosurgery at [facility] and [facility] for potential transfer. Neurosurgery at [facility] Judson Martinez PA-c working with Dr Hussein Hancock recommending comfort care/hospice and declining transfer stating that patient does not need monitoring for this as no surgical intervention will be done. I will discuss with neurosurgery at [facility] for 2nd opinion. December 03, 2019 As noted above no surgical intervention. Currently comfort care measures. 12/04/2019 Patient remained stable. No need to reimage the hematomas. Comfort care measures discontinued. Regular medications resumed. 12/05/2019 Stable at this time. I would only seek reimaging if there is a mental status change. (2) Fever Qualifiers: Fever type: unspecified Qualified Code(s): R50.9 - Fever, unspecified Is this a current diagnosis for this admission?: Yes Plan: Likely 2/2 Large bilateral Subdural hematoma Chest x-ray showing no pneumonia. Urinalysis negative. Influenza negative. COVID-19 swab obtained in the ED but I have canceled it as patient has no respiratory symptoms and no evidence of pneumonia on chest imaging. Tylenol prn December 03, 2019 Continue Tylenol for comfort. It is possible that there is an infection however the gram-positive cocci in the blood culture bottle is coagulase-negative staph which is usually considered a contaminant. Urinalysis was negative. Chest x- ray was negative. December 04, 2019 The dorsum of the right wrist is somewhat swollen and tender. The patient does have some cuts on her hand. Is unclear if this is infectious or if during 1 of her falls she has sustained a fracture. I will start antibiotic therapy to cover the possibility of infection. 12/05/2019 Resolved (3) Acute metabolic encephalopathy Is this a current diagnosis for this admission?: Yes Plan: Secondary to brain bleed. Neurochecks. December 03, 2019 As above 12/04/2019 The encephalopathy was due to the acute subdural hematomas. She has cleared and appears to be back at baseline. 12/05/2019 Patient appears to be back at baseline. (4) Hyperglycemia due to type 2 diabetes mellitus Qualifiers: Diabetes mellitus extermination inspector insulin use: without fdc use Qualified Code(s): E11.65 - Type 2 diabetes mellitus with hyperglycemia Is this a current diagnosis for this admission?: Yes Plan: December 03, 2019 Accu-Cheks with sliding scale insulin. If the patient is truly comfort care I will discontinue these orders. I will discuss it with the patient's daughter. 12/04/2019 Good control. Continue current regimen. 12/05/2019 Accu-Cheks remain below 150. Continue current regimen. (5) Frequent falls Is this a current diagnosis for this admission?: Yes Plan: Has had frequent falls with facial laceration. Head CT done to evaluate this shows brain bleed. Fall precautions. December 03, 2019 As patient is comfort care there will be no physical therapy evaluation. 12/04/2019 Physical therapy did assess the patient. They feel that she would benefit from ongoing therapy. 12/05/2019 The patient certainly needs therapy for strengthening and gait training. It is hard to know if the falls are from weakness or related to the subdural hematomas. Imaging suggests that she has had small subdural hematomas in the past. (6) Dementia in Alzheimer's disease Is this a current diagnosis for this admission?: Yes Plan: December 03, 2019 Continue supportive care December 04, 2019 Continue supportive care December 05, 2019 Appears to be at baseline. (7) Right wrist pain Is this a current diagnosis for this admission?: Yes Plan: 12/04/2019 X-ray revealed no fracture. There is osteopenia as well as severe osteoarthritis. Will discuss with occupational therapy to see if she might benefit from a splint. Pain management as prescribed. December 05, 2019 The arthritic changes are likely enough to cause the discomfort in her wrist. There is no erythema and so I do not believe there is cellulitis and I have discontinued the antibiotic. (8) Osteoarthritis Qualifiers: Osteoarthritis location: hand Is this a current diagnosis for this admission?: Yes Plan: December 05, 2019 Arthritic changes noted in the wrist and hand. This likely is the reason for her discomfort and slight swelling. (9) Osteopenia Qualifiers: Osteopenia location: hand Laterality: right Qualified Code(s): M85.841 - Other specified disorders of bone density and structure, right hand Is this a current diagnosis for this admission?: Yes Plan: December 05, 2019 Osteopenia noted on x-ray. At this stage it is unlikely that the treatment outweighs risk and therefore would suggest calcium with vitamin D and a m ultivitamin. (10) Onychomycosis Is this a current diagnosis for this admission?: Yes Plan: December 05, 2019 Recommend routine care via podiatry - Plan Summary Summary: The patient tested negative for Covid-19 - Time Time Spent with patient: 15-24 minutes Medications reviewed and adjusted accordingly: Yes Anticipated discharge: SNF
[2019-12-05] MEDS ORDERED: POLYETHYLENE GLYCOL 3350 POWDER 17 GM/1 PACKET PO ONE (09:45)
[2019-12-05] MEDS ORDERED: BISACODYL 5 MG TABEC PO PRN (09:46)
[2019-12-05] MEDS ORDERED: (PENDING PHARMACY ID) (Lisinopril [Lisinopril] 20 MG) PO SCH (10:00)
[2019-12-05] MEDS: LISINOPRIL 10 MG TABLET PO SCH (10:33)
[2019-12-05] MEDS: SENNOSIDES/DOCUSATE 8.6-50 MG 1 EACH TABLET PO SCH ×2 (10:34→18:51)
[2019-12-05] MEDS: METFORMIN HCL 500 MG TABLET PO SCH ×2 (10:34→18:46)
[2019-12-05] MEDS: COLESTIPOL HCL 1 GM TABLET PO SCH ×2 (10:40→18:48)
[2019-12-05] MEDS: INSULIN LISPRO 100 UNIT/ML 3 ML VIAL SUBCUT SCH ×3 (13:47→20:59)
[2019-12-05] MEDS ORDERED: LEVETIRACETAM 500 MG TABLET PO SCH (22:00)
[2019-12-06] MEDS: LEVETIRACETAM ORAL SOLN 500 MG/5 ML UDCUP PO SCH ×3 (04:09→22:08)
[2019-12-06] MEDS: INSULIN LISPRO 100 UNIT/ML 3 ML VIAL SUBCUT SCH ×4 (09:31→21:10)
[2019-12-06] MEDS: COLESTIPOL HCL 1 GM TABLET PO SCH ×2 (09:39→17:45)
[2019-12-06] MEDS: LISINOPRIL 10 MG TABLET PO SCH (09:39)
[2019-12-06] MEDS: METFORMIN HCL 500 MG TABLET PO SCH ×2 (09:40→17:45)
[2019-12-06] MEDS: SENNOSIDES/DOCUSATE 8.6-50 MG 1 EACH TABLET PO SCH ×2 (09:40→17:45)
[2019-12-06] MEDS: NORMAL SALINE 1000 ML 1,000 ML IV PRN ×3 (09:45→23:20)
--- NOTE | 2019-12-06 11:43 | PDOC PROGRESS REPORT ---
Subjective Progress Note for:: 12/06/19 Reason For Visit: FEVER 12/06/2019 Patient was originally admitted for altered mental status, fever 101 as well as frequent falls Physical Exam Vital Signs: Temp Pulse Resp BP Pulse Ox 98.3 F 80 17 151/74 H 96 12/06/19 07:53 12/06/19 07:53 12/06/19 07:53 12/06/19 07:53 12/06/19 07:53 Intake & Output 12/05/19 12/06/19 12/07/19 06:59 06:59 06:59 Intake Total 2263 3694 Output Total 300 Balance 2263 3394 Weight 80.9 kg General appearance: PRESENT: no acute distress, other - Patient is sitting up in bed smiling happy trying to answer all questions although she does not know the name of the town she thinks she is in [place] she does not know the name of the state she does not know today's date. She is aware that [place] is president. She does not know why she was admitted to the hospital Respiratory exam: PRESENT: clear to auscultation jose alfredo. ABSENT: rales, rhonchi, wheezes Cardiovascular exam: PRESENT: RRR. ABSENT: diastolic murmur, rubs, systolic murmur Neurological exam: PRESENT: alert, awake Psychiatric exam: PRESENT: unusual affect - Patient very happy smiling and pleasant Results Laboratory Results: 12/05/19 04:46 12/05/19 04:46 12/02/19 11:18 Blood Blood Culture (PCR) - Final Staphylococcus Species 12/02/19 11:18 Blood Blood Culture - Final Staphylococcus Epidermidis 12/02/19 11:18 Troponin I < 0.012 Impressions: Head CT 12/02/19 00:00 IMPRESSION: Large bilateral subdural hematomas with varying age blood products as described. No skull fracture. Mild midline shift from right to left due to the size of the right subdural hematoma compared to the left. The right sub dural hematoma measures up to 2.6 cm. The left measures up to 1.8 cm. EVIDENCE OF ACUTE STROKE: NO. Chest X-Ray 12/02/19 12:22 IMPRESSION: NO ACUTE RADIOGRAPHIC FINDING IN THE CHEST. Wrist X-Ray 12/04/19 00:00 IMPRESSION: 1. No acute fracture or dislocation of the right wrist. 2. Moderate to severe osteopenia. 3. 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 Moderate osteoarthritis at the mid carpus. Associated soft tissue swelling. Assessment and Plan - Diagnosis (1) Acute metabolic encephalopathy Is this a current diagnosis for this admission?: Yes (2) Confusion Is this a current diagnosis for this admission?: Yes (3) Dementia in Alzheimer's disease Is this a current diagnosis for this admission?: Yes (4) Fever Qualifiers: Fever type: unspecified Qualified Code(s): R50.9 - Fever, unspecified Is this a current diagnosis for this admission?: Yes (5) Frequent falls Is this a current diagnosis for this admission?: Yes (6) Subdural hematoma, post-traumatic Qualifiers: Encounter type: initial encounter Loss of consciousness presence/duration: without LOC Qualified Code(s): S06.5X0A - Traumatic subdural hemorrhage without loss of consciousness, initial encounter Is this a current diagnosis for this admission?: Yes - Plan Summary Summary: The patient tested negative for Covid-19 12/06/2019 She has not had a temperature in 48 hours. Temperature this morning is 98.6, pulse is 81, blood pressure is slightly high at 177/83 White blood cell count 9.5 electrolytes are normal blood cultures are negative Finger stick blood sugar is less than 150 Stated earlier patient is disoriented for place time and situation. Patient nito balizes no complaints Is currently on a sliding scale of insulin, normal saline at 150 an hour, metf ormin thousand milligrams twice daily, Keppra 250 mg every 12 hours Unasyn was discontinued yesterday. Looks as though this was started the day before for possible infection on the right wrist. Patient was admitted with a white count of 14,100 which is gone down his admission, today 9500 I will not start any further antibiotics at this time but simply watch her for the next 24 to 48 hours Keppra has been added to her regimen prophylactically for seizures - Time Time Spent with patient: 25-34 minutes
[2019-12-06] MEDS: LORAZEPAM INJ 2 MG/1 ML VIAL IV PRN (20:22)
[2019-12-07] MEDS: KETOROLAC TROMETHAMINE INJ/PF 30 MG/1 ML SDV IV PRN ×2 (00:20→04:45)
[2019-12-07] MEDS: NORMAL SALINE 1000 ML 1,000 ML IV PRN ×2 (04:52→19:58)
[2019-12-07] MEDS: INSULIN LISPRO 100 UNIT/ML 3 ML VIAL SUBCUT SCH (09:10)
[2019-12-07] MEDS: METFORMIN HCL 500 MG TABLET PO SCH (09:54)
[2019-12-07] MEDS: COLESTIPOL HCL 1 GM TABLET PO SCH ×2 (10:17→18:06)
[2019-12-07] MEDS: SENNOSIDES/DOCUSATE 8.6-50 MG 1 EACH TABLET PO SCH ×2 (10:17→18:04)
[2019-12-07] MEDS: LISINOPRIL 10 MG TABLET PO SCH (10:17)
[2019-12-07] MEDS: LEVETIRACETAM ORAL SOLN 500 MG/5 ML UDCUP PO SCH ×2 (10:17→21:56)
--- NOTE | 2019-12-07 12:43 | PDOC PROGRESS REPORT ---
Subjective Progress Note for:: 12/07/19 Reason For Visit: FEVER December 07, 2019 She was admitted for bilateral subdural hematomas, altered mental status, fever, frequent falls Physical Exam Vital Signs: Temp Pulse Resp BP Pulse Ox 98.1 F 75 18 160/69 H 94 12/07/19 11:22 12/07/19 11:22 12/07/19 11:22 12/07/19 11:22 12/07/19 11:22 Intake & Output 12/06/19 12/07/19 12/08/19 06:59 06:59 06:59 Intake Total 3694 2870 Output Total 300 Balance 3394 2870 Weight 80.9 kg 82.1 kg General appearance: PRESENT: no acute distress, other - Sleeping but arouses easily Respiratory exam: PRESENT: clear to auscultation jose alfredo. ABSENT: rales, rhonchi, wheezes Cardiovascular exam: PRESENT: RRR. ABSENT: diastolic murmur, rubs, systolic murmur Neurological exam: PRESENT: alert, altered, awake Psychiatric exam: PRESENT: unusual affect Results Laboratory Results: 12/05/19 04:46 12/05/19 04:46 12/02/19 11:55 Blood Blood Culture - Final NO GROWTH IN 5 DAYS 12/02/19 11:18 Troponin I < 0.012 Impressions: Head CT 12/02/19 00:00 IMPRESSION: Large bilateral subdural hematomas with varying age blood products as described. No skull fracture. Mild midline shift from right to left due to the size of the right subdural hematoma compared to the left. The right subdural hematoma measures up to 2.6 cm. The left measures up to 1.8 cm. EVIDENCE OF ACUTE STROKE: NO. Chest X-Ray 12/02/19 12:22 IMPRESSION: NO ACUTE RADIOGRAPHIC FINDING IN THE CHEST. Wrist X-Ray 12/04/19 00:00 IMPRESSION: 1. No acute fracture or dislocation of the right wrist. 2. Moderate to severe osteopenia. 3. 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 Moderate osteoarthritis at the mid carpus. Associated soft tissue swelling. Assessment and Plan - Diagnosis (1) Acute metabolic encephalopathy Is this a current diagnosis for this admission?: Yes (2) Confusion Is this a current diagnosis for this admission?: Yes (3) Dementia in Alzheimer's disease Is this a current diagnosis for this admission?: Yes (4) Fever Qualifiers: Fever type: unspecified Qualified Code(s): R50.9 - Fever, unspecified Is this a current diagnosis for this admission?: Yes (5) Frequent falls Is this a current diagnosis for this admission?: Yes (6) Subdural hematoma, post-traumatic Qualifiers: Encounter type: initial encounter Loss of consciousness presence/duration: without LOC Qualified Code(s): S06.5X0A - Traumatic subdural hemorrhage withou t loss of consciousness, initial encounter Is this a current diagnosis for this admission?: Yes - Plan Summary Summary: The patient tested negative for Covid-19 12/06/2019 She has not had a temperature in 48 hours. Temperature this morning is 98.6, pulse is 81, blood pressure is slightly high at 177/83 White blood cell count 9.5 electrolytes are normal blood cultures are negative Finger stick blood sugar is less than 150 Stated earlier patient is disoriented for place time and situation. Patient verbalizes no complaints Is currently on a sliding scale of insulin, normal saline at 150 an hour, metformin thousand milligrams twice daily, Keppra 250 mg every 12 hours Unasyn was discontinued yesterday. Looks as though this was started the day before for possible infection on the right wrist. Patient was admitted with a white count of 14,100 which is gone down his admission, today 9500 I will not start any further antibiotics at this time but simply watch her for the next 24 to 48 hours Keppra has been added to her regimen prophylactically for seizures 12/07/2019 Patient sliding scale of insulin has been discontinued and her metformin has been cut back to 500 twice daily. I was a little concerned that the patient may the hypoglycemic in fact this may be 1 of the reasons that she had fallen at home Temperature 98.1 pulse 77 blood pressure 164/74 O2 sat 95% on room air. Blood cultures negative Patient is medically stable I think her dementia is baseline. Patient can be discharged to her facility tomorrow Covid 19 is negative Repeat labs in the morning - Time Time Spent with patient: 25-34 minutes
[2019-12-07] MEDS ORDERED: METFORMIN HCL 500 MG TABLET PO SCH (16:00)
[2019-12-08] MEDS: NORMAL SALINE 1000 ML 1,000 ML IV PRN ×2 (02:46→21:49)
[2019-12-08 05:52] LABS: ABSOLUTE BASOPHILS # (AUTO) 0.1 10^3/uL (0.0-0.2); ABSOLUTE EOSINOPHILS # (AUTO) 0.2 10^3/uL (0.0-0.6); ABSOLUTE LYMPHOCYTES (AUTO) 1.1 10^3/uL (0.5-4.7); ABSOLUTE MONOCYTES (AUTO) 0.7 10^3/uL (0.1-1.4); ABSOLUTE NEUT (AUTO) 5.4 10^3/uL (1.7-8.2); BASOPHILS % (AUTO) 1.1 % (0-2); EOSINOPHILS % (AUTO) 3.3 % (0-6); HEMATOCRIT 30.9 % (36.0-47.0); HEMOGLOBIN 9.7 g/dL (12.0-15.5); MEAN CORPUSCULAR HEMOGLOBIN 24.1 pg (27.0-33.4); MEAN CORPUSCULAR HGB CONC 31.5 g/dL (32.0-36.0); MEAN CORPUSCULAR VOLUME 77 fl (80-97); MONOCYTES % (AUTO) 8.8 % (3-13); PLATELET COUNT 327 10^3/uL (150-450); RED BLOOD COUNT 4.04 10^6/uL (3.72-5.28); RED CELL DISTRIBUTION WIDTH 17.9 % (11.5-14.0); SEGMENTED NEUTROPHILS % (AUTO) 71.8 % (42-78); TOTAL CELLS COUNTED % (AUTO) 100 %; WHITE BLOOD COUNT 7.6 10^3/uL (4.0-10.5)
[2019-12-08 06:20] LABS: ANION GAP 8 (5-19); CARBON DIOXIDE 20 mmol/L (22-30); CHLORIDE 108 mmol/L (98-107); GLUCOSE 95 mg/dL (75-110); POTASSIUM 3.2 mmol/L (3.6-5.0)
[2019-12-08 06:25] LABS: BLOOD UREA NITROGEN 6 mg/dL (7-20)
[2019-12-08 06:26] LABS: CALCIUM 7.8 mg/dL (8.4-10.2)
[2019-12-08] MEDS: COLESTIPOL HCL 1 GM TABLET PO SCH ×2 (14:08→18:46)
[2019-12-08] MEDS: LEVETIRACETAM ORAL SOLN 500 MG/5 ML UDCUP PO SCH ×2 (14:08→21:30)
[2019-12-08] MEDS: POTASSIUM CHLORIDE 10 MEQ TABLET.ER PO SCH ×2 (14:09→21:29)
[2019-12-08] MEDS: LISINOPRIL 10 MG TABLET PO SCH (14:09)
[2019-12-08] MEDS: SENNOSIDES/DOCUSATE 8.6-50 MG 1 EACH TABLET PO SCH ×2 (14:12→18:46)
--- NOTE | 2019-12-08 16:13 | PDOC DISCHARGE SUMMARY ---
Impression - Admit/DC Date/PCP Admission Date/Primary Care Provider: 12/02/19 15:11 NOELLE HEREDIA MD Discharge Date: 12/08/19 - Discharge Diagnosis (1) Acute metabolic encephalopathy Is this a current diagnosis for this admission?: Yes (2) Confusion Is this a current diagnosis for this admission?: Yes (3) Dementia in Alzheimer's disease Is this a current diagnosis for this admission?: Yes (4) Fever Is this a current diagnosis for this admission?: Yes (5) Frequent falls Is this a current diagnosis for this admission?: Yes (6) Subdural hematoma, post-traumatic Is this a current diagnosis for this admission?: Yes - Assessment Summary: The patient tested negative for Covid-19 12/06/2019 She has not had a temperature in 48 hours. Temperature this morning is 98.6, pulse is 81, blood pressure is slightly high at 177/83 White blood cell count 9.5 electrolytes are normal blood cultures are negative Finger stick blood sugar is less than 150 Stated earlier patient is disoriented for place time and situation. Patient verbalizes no complaints Is currently on a sliding scale of insulin, normal saline at 150 an hour, metformin thousand milligrams twice daily, Keppra 250 mg every 12 hours Unasyn was discontinued yesterday. Looks as though this was started the day before for possible infection on the right wrist. Patient was admitted with a white count of 14,100 which is gone down his admission, today 9500 I will not start any further antibiotics at this time but simply watch her for the next 24 to 48 hours Keppra has been added to her regimen prophylactically for seizures 12/07/2019 Patient sliding scale of insulin has been discontinued and her metformin has been cut back to 500 twice daily. I was a little concerned that the patient may the hypoglycemic in fact this may be 1 of the reasons that she had fallen at home Temperature 98.1 pulse 77 blood pressure 164/74 O2 sat 95% on room air. Blood cultures negative Patient is medically stable I think her dementia is baseline. Patient can be discharged to her facility tomorrow Covid 19 is negative Repeat labs in the morning 12/08/2019 Patient came from an assisted living facility, [facility], is now reassessing her admission status for rehabilitation. I was told by her daughter that she has a bed and that they would accept her back but now it appears there may be some delay. Patient was admitted for frequent falls and found to have bilateral acute subdurals. The patient also had a low-grade fever but her white count was normal. Other admitting diagnosis includes altered mental status, chronic dementia. Patient will need to be discharged on her Keppra 500 mg twice daily, mycin 150 mg every 8 hours for 7 days and KCl 20 mEq every 12 hours. White blood cell count 7.6 hemoglobin stable at 9.7, Sodium 135 potassium 3.2 BUN of 6 creatinine 0.34 Patient's discharge plan has been put into the computer today - Additional Information Resuscitation Status: Do Not Resuscitate - dnr/dni confirmed by Daughter Discharge Diet: Diabetic Discharge Activity: Balance Activity w/Rest Referrals: NOELLE HEREDIA MD [Primary Care Provider] - Follow up as needed Prescriptions: Clindamycin HCl [Cleocin 150 mg Capsule] 150 mg PO Q8H 7 Days #21 capsule Levetiracetam [Keppra 500 mg Tablet] 500 mg PO Q12 30 Days #60 tablet Potassium Chloride [Klor-Con 10 Meq Tablet ER] 20 meq PO Q12 15 Days #30 tablet.er Home Medications: Cholecalciferol (Vitamin D3) [Vitamin D3 1000 Unit Tablet] 2,000 unit PO DAILY 12/02/19 Colestipol HCl [Colestid 1 gm Tablet] 1 gm PO BID 12/02/19 Cyclobenzaprine HCl 5 mg PO QHS 12/02/19 Lisinopril 20 mg PO DAILY 12/02/19 Acetaminophen [Tylenol 325 mg Tablet] 650 mg PO Q4HP PRN tablet 12/08/19 Acetaminophen [Tylenol 650 mg Supp] 650 mg AR Q4HP PRN supp.rect 12/08/19 Bisacodyl [Dulcolax 5 mg Tablet] 10 mg PO DAILYP PRN tabec 12/08/19 Clindamycin HCl [Cleocin 150 mg Capsule] 150 mg PO Q8H 7 Days #21 capsule 12/08/19 Levetiracetam [Keppra 500 mg Tablet] 500 mg PO Q12 30 Days #60 tablet 12/08/19 Lisinopril [Prinivil 10 mg Tablet] 20 mg PO DAILY tablet 12/08/19 Potassium Chloride [Klor-Con 10 Meq Tablet ER] 20 meq PO Q12 15 Days #30 tablet.er 12/08/19 History of Present Illiness History of Present Illness: CHEY DENISE is a 84 year old female Physical Exam Vital Signs: Temp Pulse Resp BP Pulse Ox 99.2 F 75 19 129/45 H 94 12/08/19 07:57 12/08/19 14:00 12/08/19 07:57 12/08/19 07:57 12/08/19 07:57 Intake & Output 12/07/19 12/08/19 12/09/19 06:59 06:59 06:59 Intake Total 2870 5 0 Balance 2869 2074 0 Weight 82.1 kg 83.9 kg Results Laboratory Results: WBC 7.6 10^3/uL (4.0-10.5) 12/08/19 05:20 RBC 4.04 10^6/uL (3.72-5.28) 12/08/19 05:20 Hgb 9.7 g/dL (12.0-15.5) L 12/08/19 05:20 Hct 30.9 % (36.0-47.0) L 12/08/19 05:20 MCV 77 fl (80-97) L 12/08/19 05:20 MCH 24.1 pg (27.0-33.4) L 12/08/19 05:20 MCHC 31.5 g/dL (32.0-36.0) L 12/08/19 05:20 RDW 17.9 % (11.5-14.0) H 12/08/19 05:20 Plt Count 327 10^3/uL (150-450) 12/08/19 05:20 Lymph % (Auto) 15.0 % (13-45) 12/08/19 05:20 [place] % (Auto) 8.8 % (3-13) 12/08/19 05:20 Eos % (Auto) 3.3 % (0-6) 12/08/19 05:20 Baso % (Auto) 1.1 % (0-2) 12/08/19 05:20 Absolute Neuts (auto) 5.4 10^3/uL (1.7-8.2) 12/08/19 05:20 Absolute Lymphs (auto) 1.1 10^3/uL (0.5-4.7) 12/08/19 05:20 Absolute Monos (auto) 0.7 10^3/uL (0.1-1.4) 12/08/19 05:20 Absolute Eos (auto) 0.2 10^3/uL (0.0-0.6) 12/08/19 05:20 Absolute Basos (auto) 0.1 10^3/uL (0.0-0.2) 12/08/19 05:20 Seg Neutrophils % 71.8 % (42-78) 12/08/19 05:20 PT 14.7 SEC (11.4-15.4) 12/02/19 11:18 INR 1.14 12/02/19 11:18 VBG pH 7.47 (7.30-7.42) H 12/02/19 13:15 VBG pCO2 37.6 mmHg (35-63) 12/02/19 13:15 VBG HCO3 26.8 mmol/L (20-32) 12/02/19 13:15 VBG Base Excess 2.9 mmol/L 12/02/19 13:15 Sodium 135.5 mmol/L (137-145) L 12/08/19 05:20 Potassium 3.2 mmol/L (3.6-5.0) L 12/08/19 05:20 Chloride 108 mmol/L (98-107) H 12/08/19 05:20 Carbon Dioxide 20 mmol/L (22-30) L 12/08/19 05:20 Anion Gap 8 (5-19) 12/08/19 05:20 BUN 6 mg/dL (7-20) L 12/08/19 05:20 Creatinine 0.34 mg/dL (0.52-1.25) L 12/08/19 05:20 Est GFR ( Amer) > 60 (>60) 12/08/19 05:20 Est GFR (MDRD) Non-Af > 60 (>60) 12/08/19 05:20 Glucose 95 mg/dL (75-110) 12/08/19 05:20 POC Glucose 99 mg/dL (70-110) 12/08/19 11:49 Lactic Acid 2.1 mmol/L (0.7-2.1) 12/02/19 14:30 Calcium 7.8 mg/dL (8.4-10.2) L 12/08/19 05:20 Magnesium 1.9 mg/dL (1.6-2.3) 12/05/19 04:46 Total Bilirubin 1.2 mg/dL (0.2-1.3) 12/02/19 11:18 Direct Bilirubin 0.4 mg/dL (0.0-0.4) 12/02/19 11:18 Neonat Total Bilirubin Not Reportable 12/02/19 11:18 Neonat Direct Bilirubin Not Reportable 12/02/19 11:18 Neonat Indirect Bili Not Reportable 12/02/19 11:18 AST 35 U/L (14-36) 12/02/19 11:18 ALT 23 U/L (<35) 12/02/19 11:18 Alkaline Phosphatase 142 U/L (38-126) H 12/02/19 11:18 Troponin I < 0.012 ng/mL 12/02/19 11:18 Total Protein 7.8 g/dL (6.3-8.2) 12/02/19 11:18 Albumin 3.6 g/dL (3.5-5.0) 12/02/19 11:18 Urine Color YELLOW 12/02/19 12:15 Urine Appearance SLIGHTLY-CLOUDY 12/02/19 12:15 Urine pH 6.0 (5.0-9.0) 12/02/19 12:15 Ur Specific [place] 1.015 12/02/19 12:15 Urine Protein NEGATIVE mg/dL (NEGATIVE) 12/02/19 12:15 Urine Glucose (UA) NEGATIVE mg/dL (NEGATIVE) 12/02/19 12:15 Urine Ketones TRACE mg/dL (NEGATIVE) H 12/02/19 12:15 Urine Blood NEGATIVE (NEGATIVE) 12/02/19 12:15 Urine Nitrite (Reflex) NEGATIVE (NEGATIVE) 12/02/19 12:15 Urine Bilirubin NEGATIVE (NEGATIVE) 12/02/19 12:15 Urine Urobilinogen NEGATIVE mg/dL (<2.0) 12/02/19 12:15 Leukocyte Esterase Rfl NEGATIVE (NEGATIVE) 12/02/19 12:15 Urine RBC (Auto) 0 /HPF 12/02/19 12:15 U Hyaline Cast (Auto) 1 /LPF 12/02/19 12:15 Urine WBC (Reflex) 6 /HPF 12/02/19 12:15 Squamous Epi Cells Auto <1 /HPF 12/02/19 12:15 Urine Mucus (Auto) RARE /LPF 12/02/19 12:15 Urine Ascorbic Acid NEGATIVE (NEGATIVE) 12/02/19 12:15 COVID-19 Source Cancelled 12/02/19 13:15 COVID-19 Source Cancelled 12/02/19 13:15 COVID-19 Source NASOPHARYNGEAL 12/02/19 13:15 COVID-19 (TY) Cancelled 12/02/19 13:15 COVID-19 (TY) Cancelled 12/02/19 13:15 COVID-19 (TY) NOT DETECTED 12/02/19 13:15 Influenza A (Rapid) NEGATIVE (NEGATIVE) 12/02/19 13:15 Influenza B (Rapid) NEGATIVE (NEGATIVE) 12/02/19 13:15 12/02/19 11:18 Troponin I < 0.012 Impressions: Head CT 12/02/19 00:00 IMPRESSION: Large bilateral subdural hematomas with varying age blood products as described. No skull fracture. Mild midline shift from right to left due to the size of the right subdural hematoma compared to the left. The right subdural hematoma measures up to 2.6 cm. The left measures up to 1.8 cm. EVIDENCE OF ACUTE STROKE: NO. Chest X-Ray 12/02/19 12:22 IMPRESSION: NO ACUTE RADIOGRAPHIC FINDING IN THE CHEST. Wrist X-Ray 12/04/19 00:00 IMPRESSION: 1. No acute fracture or dislocation of the right wrist. 2. Moderate to severe osteopenia. 3. 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 Moderate osteoarthritis at the mid carpus. Associated soft tissue swelling. Stroke Is this a Stroke Patient?: No Acute Heart Failure - Is this a Heart Failure Patient?: No
[2019-12-08] MEDS: ACETAMINOPHEN 325 MG TABLET PO PRN (21:29)
[2019-12-08] MEDS: LORAZEPAM INJ 2 MG/1 ML VIAL IV PRN (21:31)
[2019-12-08] MEDS: MORPHINE SULFATE 10 MG/ML INJ IV PRN (21:32)
[2019-12-09] MEDS: NORMAL SALINE 1000 ML 1,000 ML IV PRN (04:35)
[2019-12-09] MEDS: COLESTIPOL HCL 1 GM TABLET PO SCH ×2 (11:29→19:47)
[2019-12-09] MEDS: LEVETIRACETAM ORAL SOLN 500 MG/5 ML UDCUP PO SCH (11:30)
--- NOTE | 2019-12-09 13:11 | PDOC PROGRESS REPORT ---
Subjective Progress Note for:: 12/09/19 Subjective:: 84 year old female with a history of Alzheimer's dementia, diabetes mellitus type 2, hypertension, presents to the hospital via EMS for evaluation of altered mental status and fever. Patient lives with her daughter. Unable to obtain history from patient given mental status so HPI obtained from patient's daughter Gianna via phone call. 5 days ago, patient began exhibiting symptoms of fatigue, talking less and becoming more apathetic. She also was experiencing falls frequently. Patient did not seem to care about the fact that she was falling more often and in some occasions hit her head. Patient's daughter called EMS over the weekend after patient experienced a fall and patient was recommended for monitoring at home. Yesterday, patient became more altered and was noted to be tachypneic. EMS was called again and patient was noted to be having a fever of 101F. According to daughter, patient has not exhibited any significant respiratory symptoms and denies any rhinorrhea, cough, shortness of breath, nasal congestion. Did have some diarrhea. Of note, patient's daughter expresses that her plan was to send patient to an assisted living facility to care for her but after they found out that patient's son had flown in from [place], the assisted living facility who requested a 14-day quarantine before patient could be admitted into assisted living. Patient's son has since then flown back and patient has been a 14-day quarantine which was about to end before fifth patient developed a fever. Patient daughter and son have not had any respiratory symptoms or fever since the visit. 12/09/2019-patient has history of Alzheimer's dementia, diabetes mellitus, hypertension admitted with altered mental status and fever. Patient this morning responding to the painful stimuli and not able to eat. In my opinion patient is unable to participate in rehab. Hospice consult is most appropriate. Reason For Visit: FEVER Physical Exam Vital Signs: Temp Pulse Resp BP Pulse Ox 98.5 F 83 24 H 147/62 H 95 12/09/19 07:35 12/09/19 07:35 12/08/19 20:51 12/09/19 07:35 12/09/19 07:35 Intake & Output 12/08/19 12/09/19 12/10/19 06:59 06:59 06:59 Intake Total 2074 1999 Output Total Balance 2074 1999 Weight 83.9 kg 83.9 kg General appearance: PRESENT: other - Elderly female in the bed not co mmunicative. Responding only to painful stimuli. Head exam: PRESENT: atraumatic Eye exam: PRESENT: PERRLA Ear exam: PRESENT: normal external ear exam Mouth exam: PRESENT: dry mucosa Teeth exam: PRESENT: edentulous Neck exam: ABSENT: carotid bruit, JVD, lymphadenopathy, thyromegaly Respiratory exam: PRESENT: decreased breath sounds Cardiovascular exam: PRESENT: RRR. ABSENT: diastolic murmur, rubs, systolic murmur GI/Abdominal exam: PRESENT: normal bowel sounds, soft. ABSENT: distended, guarding, mass, organolmegaly, rebound, tenderness Rectal exam: PRESENT: deferred Extremities exam: PRESENT: full ROM. ABSENT: calf tenderness, clubbing, pedal edema Neurological exam: PRESENT: altered Psychiatric exam: PRESENT: appropriate affect, normal mood. ABSENT: homicidal ideation, suicidal ideation Results Laboratory Results: 12/08/19 05:20 12/08/19 05:20 12/02/19 11:18 Troponin I < 0.012 Impressions: Head CT 12/02/19 00:00 IMPRESSION: Large bilateral subdural hematomas with varying age blood products as described. No skull fracture. Mild midline shift from right to left due to the size of the right subdural hematoma compared to the left. The right subdural hematoma measures up to 2.6 cm. The left measures up to 1.8 cm. EVIDENCE OF ACUTE STROKE: NO. Chest X-Ray 12/02/19 12:22 IMPRESSION: NO ACUTE RADIOGRAPHIC FINDING IN THE CHEST. Wrist X-Ray 12/04/19 00:00 IMPRESSION: 1. No acute fracture or dislocation of the right wrist. 2. Moderate to severe osteopenia. 3. 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 Moderate osteoarthritis at the mid carpus. Associated soft tissue swelling. Assessment and Plan - Diagnosis (1) Acute metabolic encephalopathy Is this a current diagnosis for this admission?: Yes Plan: Secondary to brain bleed. Neurochecks. December 03, 2019 As above 12/04/2019 The encephalopathy was due to the acute subdural hematomas. She has cleared and appears to be back at baseline. 12/05/2019 Patient appears to be back at baseline. 12/09/2019-patient admitted with acute metabolic encephalopathy has history of multiple falls metabolic encephalopathy may be secondary to subdural hematomas. Patient is unable to communicate in the bed not taking anything by mouth responding only to the painful stimuli. In my opinion patient is unable to participate in physical therapy or rehab. (2) Subdural hematoma, post-traumatic Qualifiers: Encounter type: initial encounter Loss of consciousness presence/duration: without LOC Qualified Code(s): S06.5X0A - Traumatic subdural hemorrhage without loss of consciousness, initial encounter Is this a current diagnosis for this admission?: Yes Plan: Obtained CT head upon admission to evaluate patient for given patient's facial laceration. Head CT shows large b/l subdural hematomas 25.9 mm on the right and 18.2 mm on the left with right to left shift of the lateral ventricle. Predisposed by Alzheimer's dementia with brain atrophy and frequent falls. Neurochecks, control blood pressure with IV meds to keep SBP less than 160. No evidence of coagulopathy. Consulting with neurosurgery at [facility] and [facility] for potential transfer. Neurosurgery at [facility] Judson Martinez PA-c working with Dr Hussein Hancock recommending comfort care/hospice and declining transfer stating that patient does not need monitoring for this as no surgical intervention will be done. I will discuss with neurosurgery at [facility] for 2nd opinion. December 03, 2019 As noted above no surgical intervention. Currently comfort care measures. 12/04/2019 Patient remained stable. No need to reimage the hematomas. Comfort care measures discontinued. Regular medications resumed. 12/05/2019 Stable at this time. I would only seek reimaging if there is a mental status change. 12/09/2019-patient admitted with history of multiple falls and found to have a subdural hematoma. Patient is unable to communicate and I doubt whether she able to participate in physical therapy. As per the nurses patient is taking nothing by mouth at this time. In my opinion patient is appropriate for hospi ce. (3) Frequent falls Is this a current diagnosis for this admission?: Yes Plan: Has had frequent falls with facial laceration. Head CT done to evaluate this shows brain bleed. Fall precautions. December 03, 2019 As patient is comfort care there will be no physical therapy evaluation. 12/04/2019 Physical therapy did assess the patient. They feel that she would benefit from ongoing therapy. 12/05/2019 The patient certainly needs therapy for strengthening and gait training. It is hard to know if the falls are from weakness or related to the subdural hematomas. Imaging suggests that she has had small subdural hematomas in the p ast. - Plan Summary Summary: The patient tested negative for Covid-19 12/06/2019 She has not had a temperature in 48 hours. Temperature this morning is 98.6, pu lse is 81, blood pressure is slightly high at 177/83 White blood cell count 9.5 electrolytes are normal blood cultures are negative Finger stick blood sugar is less than 150 Stated earlier patient is disoriented for place time and situation. Patient verbalizes no complaints Is currently on a sliding scale of insulin, normal saline at 150 an hour, metformin thousand milligrams twice daily, Keppra 250 mg every 12 hours Unasyn was discontinued yesterday. Looks as though this was started the day before for possible infection on the right wrist. Patient was admitted with a white count of 14,100 which is gone down his admission, today 9500 I will not start any further antibiotics at this time but simply watch her for the next 24 to 48 hours Keppra has been added to her regimen prophylactically for seizures 12/07/2019 Patient sliding scale of insulin has been discontinued and her metformin has been cut back to 500 twice daily. I was a little concerned that the patient may the hypoglycemic in fact this may be 1 of the reasons that she had fallen at home Temperature 98.1 pulse 77 blood pressure 164/74 O2 sat 95% on room air. Blood cultures negative Patient is medically stable I think her dementia is baseline. Patient can be discharged to her facility tomorrow Covid 19 is negative Repeat labs in the morning 12/08/2019 Patient came from an assisted living facility, [facility], is now reassessing her admission status for rehabilitation. I was told by her daughter that she has a bed and that they would accept her back but now it appears there may be some delay. Patient was admitted for frequent falls and found to have bilateral acute subdurals. The patient also had a low-grade fever but her white count was normal. Other admitting diagnosis includes altered mental status, chronic dementia. Patient will need to be discharged on her Keppra 500 mg twice daily, mycin 150 mg every 8 hours for 7 days and KCl 20 mEq every 12 hours. White blood cell count 7.6 hemoglobin stable at 9.7, Sodium 135 potassium 3.2 BUN of 6 creatinine 0.34 Patient's discharge plan has been put into the computer today
[2019-12-09 16:07] VITALS: BP 147/59
[2019-12-09] MEDS: LISINOPRIL 10 MG TABLET PO SCH (16:56)
[2019-12-09] MEDS: SENNOSIDES/DOCUSATE 8.6-50 MG 1 EACH TABLET PO SCH ×2 (16:56→19:48)
[2019-12-09] MEDS: POTASSIUM CHLORIDE 10 MEQ TABLET.ER PO SCH (16:56)
--- NOTE | 2019-12-09 18:13 | RADIOLOGY REPORT (SQ) ---
EXAM DESCRIPTION: CT HEAD WITHOUT IMAGES COMPLETED DATE/TIME: 12/09/2019 5:46 pm REASON FOR STUDY: altered mental status COMPARISON: None. TECHNIQUE: Axial images acquired through the brain without intravenous contrast. Images reviewed wi th bone, brain and subdural windows. Images stored on PACS. All CT scanners at this facility use dose modulation, iterative reconstruction, and/or weight based d osing when appropriate to reduce radiation dose to as low as reasonably achievable (ALARA). [facility]: Dose Right [facility]: CareDose [facility]: Dose Right [facility]: Teradose 4D [facility]: [employer] RADIATION DOSE: CT Rad equipment meets quality standard of care and radiation dose reduction techniq ues were employed. CTDIvol: 48.6 mGy. DLP: 905 mGy-cm. mGy. LIMITATIONS: None. FINDINGS: VENTRICLES: Normal size and contour. CEREBRUM: Bilateral subdural hematomas that appears subacute. There is some fresh blood on the right . There is mild midline shift to the left. Normal paez/white matter differentiation. No areas of low density in the white matter. CEREBELLUM: No masses. No hemorrhage. No alteration of density. No evidence for acute infarction. EXTRAAXIAL SPACES: Bilateral subdural hematomas as discussed above. ORBITS AND GLOBE: No intra- or extraconal masses. Normal contour of globe without masses. CALVARIUM: No fracture. PARANASAL SINUSES: No fluid or mucosal thickening. SOFT TISSUES: No mass or hematoma. OTHER: No other significant finding. IMPRESSION: Bilateral subacute subdural hematomas with some fresh blood on the right an with mild mi dline shift to the left. COMMENT: Findings were discussed with nurse O[place] on 4 at 1807 hours on this date. Quality ID # [id number]: Final reports with documentation of one or more dose reduction techniques (e.g., Au tomated exposure control, adjustment of the mA and/or kV according to patient size, use of iterative reconstruction technique) TECHNICAL DOCUMENTATION: JOB ID: [id number] 2010 [employer]- All Rights Reserved Reading location - IP/workstation name: [email or web address]
[2019-12-09] MEDS ORDERED: SCOPOLAMINE HYDROBROMIDE 1.5 MG PATCH.TD72 TD SCH (19:00)
--- NOTE | 2019-12-10 10:38 | PDOC PROGRESS REPORT ---
Subjective Progress Note for:: 12/10/19 Subjective:: 84 year old female with a history of Alzheimer's dementia, diabetes mellitus type 2, hypertension, presents to the hospital via EMS for evaluation of altered mental status and fever. Patient lives with her daughter. Unable to obtain history from patient given mental status so HPI obtained from patient's daughter Gianna via phone call. 5 days ago, patient began exhibiting symptoms of fatigue, talking less and becoming more apathetic. She also was experiencing falls frequently. Patient did not seem to care about the fact that she was falling more often and in some occasions hit her head. Patient's daughter called EMS over the weekend after patient experienced a fall and patient was recommended for monitoring at home. Yesterday, patient became more altered and was noted to be tachypneic. EMS was called again and patient was noted to be having a fever of 101F. According to daughter, patient has not exhibited any significant respiratory symptoms and denies any rhinorrhea, cough, shortness of breath, nasal congestion. Did have some diarrhea. Of note, patient's daughter expresses that her plan was to send patient to an assisted living facility to care for her but after they found out that patient's son had flown in from [place], the assisted living facility who requested a 14-day quarantine before patient could be admitted into assisted living. Patient's son has since then flown back and patient has been a 14-day quarantine which was about to end before fifth patient developed a fever. Patient daughter and son have not had any respiratory symptoms or fever since the visit. 12/09/2019-patient has history of Alzheimer's dementia, diabetes mellitus, hypertension admitted with altered mental status and fever. Patient this morning responding to the painful stimuli and not able to eat. In my opinion patient is unable to participate in rehab. Hospice consult is most appropriate. 12/10/2019-patient is on comfort care measures only as per the family members. I spoke to patient's daughter today she is requesting for hospice consult. Reason For Visit: FEVER Physical Exam Vital Signs: Temp Pulse Resp BP Pulse Ox 99.7 F 93 20 147/59 H 92 12/09/19 15:34 12/09/19 15:34 12/09/19 15:34 12/09/19 15:34 12/09/19 15:34 Intake & Output 12/09/19 12/10/19 12/11/19 06:59 06:59 06:59 Intake Total 2000 0 Output Total 0 Balance 1999 0 Weight 83.9 kg 83.9 kg General appearance: PRESENT: other - Patient is not responding but comfortable in the bed. Head exam: PRESENT: atraumatic Eye exam: PRESENT: PERRLA Teeth exam: PRESENT: poor dentation Respiratory exam: PRESENT: decreased breath sounds Cardiovascular exam: PRESENT: RRR. ABSENT: diastolic murmur, rubs, systolic murmur GI/Abdominal exam: PRESENT: normal bowel sounds, soft. ABSENT: distended, guarding, mass, organolmegaly, rebound, tenderness Rectal exam: PRESENT: deferred Extremities exam: PRESENT: full ROM. ABSENT: calf tenderness, clubbing, pedal edema Neurological exam: PRESENT: altered. ABSENT: oriented to person, oriented to place, oriented to time, oriented to situation Psychiatric exam: PRESENT: appropriate affect, normal mood. ABSENT: homicidal ideation, suicidal ideation Results Laboratory Results: 12/08/19 05:20 12/08/19 05:20 12/02/19 11:18 Troponin I < 0.012 Impressions: Chest X-Ray 12/02/19 12:22 IMPRESSION: NO ACUTE RADIOGRAPHIC FINDING IN THE CHEST. Wrist X-Ray 12/04/19 00:00 IMPRESSION: 1. No acute fracture or dislocation of the right wrist. 2. Moderate to severe osteopenia. 3. 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 Moderate osteoarthritis at the mid carpus. Associated soft tissue swelling. Head CT 12/09/19 00:00 IMPRESSION: Bilateral subacute subdural hematomas with some fresh blood on the right an with mild midline shift to the left. Assessment and Plan - Diagnosis (1) Acute metabolic encephalopathy Is this a current diagnosis for this admission?: Yes Plan: Secondary to brain bleed. Neurochecks. December 03, 2019 As above 12/04/2019 The encephalopathy was due to the acute subdural hematomas. She has cleared and appears to be back at baseline. 12/05/2019 Patient appears to be back at baseline. 12/09/2019-patient admitted with acute metabolic encephalopathy has history of multiple falls metabolic encephalopathy may be secondary to subdural hematomas. Patient is unable to communicate in the bed not taking anything by mouth responding only to the painful stimuli. In my opinion patient is unable to participate in physical therapy or rehab. 12/10/2019-overall prognosis poor condition is critical patient is on comfort care measures. (2) Subdural hematoma, post-traumatic Qualifiers: Encounter type: initial encounter Loss of consciousness presence/duration: without LOC Qualified Code(s): S06.5X0A - Traumatic subdural hemorrhage without loss of consciousness, initial encounter Is this a current diagnosis for this admission?: Yes Plan: Obtained CT head upon admission to evaluate patient for given patient's facial laceration. Head CT shows large b/l subdural hematomas 25.9 mm on the right and 18.2 mm on the left with right to left shift of the lateral ventricle. Predisposed by Alzheimer's dementia with brain atrophy and frequent falls. Neurochecks, control blood pressure with IV meds to keep SBP less than 160. No evidence of coagulopathy. Consulting with neurosurgery at [facility] and [facility] for potential transfer. Neurosurgery at [facility] Judson Martinez PA-c working with Dr Hussein Hancock recommending comfort care/hospice and declining transfer stating that patient does not need monitoring for this as no surgical intervention will be done. I will discuss with neurosurgery at [facility] for 2nd opinion. December 03, 2019 As noted above no surgical intervention. Currently comfort care measures. 12/04/2019 Patient remained stable. No need to reimage the hematomas. Comfort care measures discontinued. Regular medications resumed. 12/05/2019 Stable at this time. I would only seek reimaging if there is a mental status change. 12/09/2019-patient admitted with history of multiple falls and found to have a subdural hematoma. Patient is unable to communicate and I doubt whether she able to participate in physical therapy. As per the nurses patient is taking nothing by mouth at this time. In my opinion patient is appropriate for hospice. 12/10/2019-repeat CT scan indicate bilateral subdural hematomas and possible fresh blood in the right side of the brain with mild midline shift to the left. (3) Frequent falls Is this a current diagnosis for this admission?: Yes - Plan Summary Summary: The patient tested negative for Covid-19 12/06/2019 She has not had a temperature in 48 hours. Temperature this morning is 98.6, pulse is 81, blood pressure is slightly high at 177/83 White blood cell count 9.5 electrolytes are normal blood cultures are negative Finger stick blood sugar is less than 150 Stated earlier patient is disoriented for place time and situation. Patient nito balizes no complaints Is currently on a sliding scale of insulin, normal saline at 150 an hour, metf ormin thousand milligrams twice daily, Keppra 250 mg every 12 hours Unasyn was discontinued yesterday. Looks as though this was started the day before for possible infection on the right wrist. Patient was admitted with a white count of 14,100 which is gone down his admission, today 9500 I will not start any further antibiotics at this time but simply watch her for the next 24 to 48 hours Keppra has been added to her regimen prophylactically for seizures 12/07/2019 Patient sliding scale of insulin has been discontinued and her metformin has been cut back to 500 twice daily. I was a little concerned that the patient may the hypoglycemic in fact this may be 1 of the reasons that she had fallen at home Temperature 98.1 pulse 77 blood pressure 164/74 O2 sat 95% on room air. Blood cultures negative Patient is medically stable I think her dementia is baseline. Patient can be discharged to her facility tomorrow Covid 19 is negative Repeat labs in the morning 12/08/2019 Patient came from an assisted living facility, [facility] [place], is now reassessing her admission status for rehabilitation. I was told by her daughter that she has a bed and that they would accept her back but now it appears there may be some delay. Patient was admitted for frequent falls and found to have bilateral acute s ubdurals. The patient also had a low-grade fever but her white count was normal. Other admitting diagnosis includes altered mental status, chronic dementia. Patient will need to be discharged on her Keppra 500 mg twice daily, mycin 150 mg every 8 hours for 7 days and KCl 20 mEq every 12 hours. White blood cell count 7.6 hemoglobin stable at 9.7, Sodium 135 potassium 3.2 BUN of 6 creatinine 0.34 Patient's discharge plan has been put into the computer today
[2019-12-10] MEDS: MORPHINE SULFATE 10 MG/ML INJ IV PRN ×3 (12:10→23:28)
[2019-12-10] MEDS: LORAZEPAM INJ 2 MG/1 ML VIAL IV PRN (22:23)
[2019-12-11] MEDS: LORAZEPAM INJ 2 MG/1 ML VIAL IV PRN ×2 (00:27→09:16)
[2019-12-11] MEDS: MORPHINE SULFATE 10 MG/ML INJ IV PRN (06:06)
--- NOTE | 2019-12-11 09:33 | PDOC DISCHARGE SUMMARY ---
Impression - Admit/DC Date/PCP Admission Date/Primary Care Provider: 12/02/19 15:11 NOELLE HEREDIA MD Discharge Date: 12/11/19 - Discharge Diagnosis (1) Acute metabolic encephalopathy Is this a current diagnosis for this admission?: Yes (2) Subdural hematoma, post-traumatic Is this a current diagnosis for this admission?: Yes (3) Frequent falls Is this a current diagnosis for this admission?: Yes - Assessment Summary: The patient tested negative for Covid-19 12/06/2019 She has not had a temperature in 48 hours. Temperature this morning is 98.6, pulse is 81, blood pressure is slightly high at 177/83 White blood cell count 9.5 electrolytes are normal blood cultures are negative Finger stick blood sugar is less than 150 Stated earlier patient is disoriented for place time and situation. Patient verbalizes no complaints Is currently on a sliding scale of insulin, normal saline at 150 an hour, metformin thousand milligrams twice daily, Keppra 250 mg every 12 hours Unasyn was discontinued yesterday. Looks as though this was started the day before for possible infection on the right wrist. Patient was admitted with a white count of 14,100 which is gone down his admission, today 9500 I will not start any further antibiotics at this time but simply watch her for the next 24 to 48 hours Keppra has been added to her regimen prophylactically for seizures 12/07/2019 Patient sliding scale of insulin has been discontinued and her metformin has been cut back to 500 twice daily. I was a little concerned that the patient may the hypoglycemic in fact this may be 1 of the reasons that she had fallen at home Temperature 98.1 pulse 77 blood pressure 164/74 O2 sat 95% on room air. Blood cultures negative Patient is medically stable I think her dementia is baseline. Patient can be discharged to her facility tomorrow Covid 19 is negative Repeat labs in the morning 12/08/2019 Patient came from an assisted living facility, [place], is now reassessing her admission status for rehabilitation. I was told by her daughter that she has a bed and that they would accept her back but now it appears there may be some delay. Patient was admitted for frequent falls and found to have bilateral acute subdurals. The patient also had a low-grade fever but her white count was no rmal. Other admitting diagnosis includes altered mental status, chronic dementia. Patient will need to be discharged on her Keppra 500 mg twice daily, mycin 150 mg every 8 hours for 7 days and KCl 20 mEq every 12 hours. White blood cell count 7.6 hemoglobin stable at 9.7, Sodium 135 potassium 3.2 BUN of 6 creatinine 0.34 Patient's discharge plan has been put into the computer today - Additional Information Resuscitation Status: Do Not Resuscitate - dnr/dni confirmed by Daughter Discharge Diet: Diabetic Discharge Activity: Balance Activity w/Rest Referrals: NOELLE HEREDIA MD [Primary Care Provider] - Follow up as needed History of Present Illiness History of Present Illness: CHEY DENISE is a 84 year old female 84 year old female with a history of Alzheimer's dementia, diabetes mellitus type 2, hypertension, presents to the hospital via EMS for evaluation of altered mental status and fever. Patient lives with her daughter. Unable to obtain history from patient given mental status so HPI obtained from patient's daughter Gianna via phone call. 5 days ago, patient began exhibiting symptoms of fatigue, talking less and becoming more apathetic. She also was experiencing falls frequently. Patient did not seem to care about the fact that she was falling more often and in some occasions hit her head. Patient's daughter called EMS over the weekend after patient experienced a fall and patient was recommended for monitoring at home. Yesterday, patient became more altered and was noted to be tachypneic. EMS was called again and patient was noted to be having a fever of 101F. According to daughter, patient has not exhibited any significant respiratory symptoms and denies any rhinorrhea, cough, shortness of breath, nasal congestion. Did have some diarrhea. Of note, patient's daughter expresses that her plan was to send patient to an assisted living facility to care for her but after they found out that patient's son had flown in from [place], the assisted living facility who requested a 14-day quarantine before patient could be admitted into assisted living. Patient's son has since then flown back and patient has been a 14-day quarantine which was about to end before fifth patient developed a fever. Patient daughter and son have not had any respiratory symptoms or fever since the visit. Hospital Course Hospital Course: 84 year old female with a history of Alzheimer's dementia, diabetes mellitus type 2, hypertension, presents to the hospital via EMS for evaluation of altered mental status and fever. Patient lives with her daughter. Unable to obtain history from patient given mental status so HPI obtained from patient's daughter Gianna via phone call. 5 days ago, patient began exhibiting symptoms of fatigue, talking less and becoming more apathetic. She also was experiencing falls frequently. Patient did not seem to care about the fact that she was falling more often and in some occasions hit her head. Patient's daughter called EMS over the weekend after patient experienced a fall and patient was recommended for monitoring at home. Yesterday, patient became more altered and was noted to be tachypneic. EMS was called again and patient was noted to be having a fever of 101F. According to daughter, patient has not exhibited any significant respiratory symptoms and denies any rhinorrhea, cough, shortness of breath, nasal congestion. Did have some diarrhea. Of note, patient's daughter expresses that her plan was to send patient to an assisted living facility to care for her but after they found out that patient's son had flown in from [place], the assisted living facility who requested a 14-day quarantine before patient could be admitted into assisted living. Patient's son has since then flown back and patient has been a 14-day quarantine which was about to end before fifth patient developed a fever. Patient daughter and son have not had any respiratory symptoms or fever since the visit. 12/09/2019-patient has history of Alzheimer's dementia, diabetes mellitus, hypertension admitted with altered mental status and fever. Patient this morning responding to the painful stimuli and not able to eat. In my opinion patient is unable to participate in rehab. Hospice consult is most appropriate. 12/10/2019-patient is on comfort care measures only as per the family members. I spoke to patient's daughter today she is requesting for hospice consult. 12/11/2019-patient is on comfort care measures only she is going to be discharged to [facility] with hospice care only. Physical Exam Vital Signs: Temp Pulse Resp BP Pulse Ox 99.7 F 93 20 147/59 H 92 12/09/19 15:34 12/09/19 15:34 12/09/19 15:34 12/09/19 15:34 12/09/19 15:34 Intake & Output 12/10/19 12/11/19 12/12/19 06:59 06:59 06:59 Intake Total 1000 0 Balance 1000 0 Weight 83.9 kg 83.9 kg General appearance: PRESENT: mild distress, other - Patient is morning unresponsive. Head exam: PRESENT: atraumatic Eye exam: PRESENT: conjunctiva pale, PERRLA Mouth exam: PRESENT: dry mucosa Teeth exam: PRESENT: poor dentation Neck exam: ABSENT: carotid bruit, JVD, lymphadenopathy, thyromegaly Respiratory exam: PRESENT: decreased breath sounds Cardiovascular exam: PRESENT: tachycardia GI/Abdominal exam: PRESENT: other - Soft nonabdomen with very sluggish bowel sounds. Rectal exam: PRESENT: deferred Neurological exam: PRESENT: altered, other - Patient is unresponsive unable to do the neuro exam.. ABSENT: oriented to person, oriented to place, oriented to time Results Laboratory Results: WBC 7.6 10^3/uL (4.0-10.5) 12/08/19 05:20 RBC 4.04 10^6/uL (3.72-5.28) 12/08/19 05:20 Hgb 9.7 g/dL (12.0-15.5) L 12/08/19 05:20 Hct 30.9 % (36.0-47.0) L 12/08/19 05:20 MCV 77 fl (80-97) L 12/08/19 05:20 MCH 24.1 pg (27.0-33.4) L 12/08/19 05:20 MCHC 31.5 g/dL (32.0-36.0) L 12/08/19 05:20 RDW 17.9 % (11.5-14.0) H 12/08/19 05:20 Plt Count 327 10^3/uL (150-450) 12/08/19 05:20 Lymph % (Auto) 15.0 % (13-45) 12/08/19 05:20 [place]ton % (Auto) 8.8 % (3-13) 12/08/19 05:20 Eos % (Auto) 3.3 % (0-6) 12/08/19 05:20 Baso % (Auto) 1.1 % (0-2) 12/08/19 05:20 Absolute Neuts (auto) 5.4 10^3/uL (1.7-8.2) 12/08/19 05:20 Absolute Lymphs (auto) 1.1 10^3/uL (0.5-4.7) 12/08/19 05:20 Absolute Monos (auto) 0.7 10^3/uL (0.1-1.4) 12/08/19 05:20 Absolute Eos (auto) 0.2 10^3/uL (0.0-0.6) 12/08/19 05:20 Absolute Basos (auto) 0.1 10^3/uL (0.0-0.2) 12/08/19 05:20 Seg Neutrophils % 71.8 % (42-78) 12/08/19 05:20 PT 14.7 SEC (11.4-15.4) 12/02/19 11:18 INR 1.14 12/02/19 11:18 VBG pH 7.47 (7.30-7.42) H 12/02/19 13:15 VBG pCO2 37.6 mmHg (35-63) 12/02/19 13:15 VBG HCO3 26.8 mmol/L (20-32) 12/02/19 13:15 VBG Base Excess 2.9 mmol/L 12/02/19 13:15 Sodium 135.5 mmol/L (137-145) L 12/08/19 05:20 Potassium 3.2 mmol/L (3.6-5.0) L 12/08/19 05:20 Chloride 108 mmol/L (98-107) H 12/08/19 05:20 Carbon Dioxide 20 mmol/L (22-30) L 12/08/19 05:20 Anion Gap 8 (5-19) 12/08/19 05:20 BUN 6 mg/dL (7-20) L 12/08/19 05:20 Creatinine 0.34 mg/dL (0.52-1.25) L 12/08/19 05:20 Est GFR ( Amer) > 60 (>60) 12/08/19 05:20 Est GFR (MDRD) Non-Af > 60 (>60) 12/08/19 05:20 Glucose 95 mg/dL (75-110) 12/08/19 05:20 POC Glucose 115 mg/dL (70-110) H 12/09/19 22:04 Lactic Acid 2.1 mmol/L (0.7-2.1) 12/02/19 14:30 Calcium 7.8 mg/dL (8.4-10.2) L 12/08/19 05:20 Magnesium 1.9 mg/dL (1.6-2.3) 12/05/19 04:46 Total Bilirubin 1.2 mg/dL (0.2-1.3) 12/02/19 11:18 Direct Bilirubin 0.4 mg/dL (0.0-0.4) 12/02/19 11:18 Neonat Total Bilirubin Not Reportable 12/02/19 11:18 Neonat Direct Bilirubin Not Reportable 12/02/19 11:18 Neonat Indirect Bili Not Reportable 12/02/19 11:18 AST 35 U/L (14-36) 12/02/19 11:18 ALT 23 U/L (<35) 12/02/19 11:18 Alkaline Phosphatase 142 U/L (38-126) H 12/02/19 11:18 Troponin I < 0.012 ng/mL 12/02/19 11:18 Total Protein 7.8 g/dL (6.3-8.2) 12/02/19 11:18 Albumin 3.6 g/dL (3.5-5.0) 12/02/19 11:18 Urine Color YELLOW 12/02/19 12:15 Urine Appearance SLIGHTLY-CLOUDY 12/02/19 12:15 Urine pH 6.0 (5.0-9.0) 12/02/19 12:15 Ur Specific Ponce 1.015 12/02/19 12:15 Urine Protein NEGATIVE mg/dL (NEGATIVE) 12/02/19 12:15 Urine Glucose (UA) NEGATIVE mg/dL (NEGATIVE) 12/02/19 12:15 Urine Ketones TRACE mg/dL (NEGATIVE) H 12/02/19 12:15 Urine Blood NEGATIVE (NEGATIVE) 12/02/19 12:15 Urine Nitrite (Reflex) NEGATIVE (NEGATIVE) 12/02/19 12:15 Urine Bilirubin NEGATIVE (NEGATIVE) 12/02/19 12:15 Urine Urobilinogen NEGATIVE mg/dL (<2.0) 12/02/19 12:15 Leukocyte Esterase Rfl NEGATIVE (NEGATIVE) 12/02/19 12:15 Urine RBC (Auto) 0 /HPF 12/02/19 12:15 U Hyaline Cast (Auto) 1 /LPF 12/02/19 12:15 Urine WBC (Reflex) 6 /HPF 12/02/19 12:15 Squamous Epi Cells Auto <1 /HPF 12/02/19 12:15 Urine Mucus (Auto) RARE /LPF 12/02/19 12:15 Urine Ascorbic Acid NEGATIVE (NEGATIVE) 12/02/19 12:15 COVID-19 Source Cancelled 12/02/19 13:15 COVID-19 Source Cancelled 12/02/19 13:15 COVID-19 Source NASOPHARYNGEAL 12/02/19 13:15 COVID-19 (TY) Cancelled 12/02/19 13:15 COVID-19 (TY) Cancelled 12/02/19 13:15 COVID-19 (TY) NOT DETECTED 12/02/19 13:15 Influenza A (Rapid) NEGATIVE (NEGATIVE) 12/02/19 13:15 Influenza B (Rapid) NEGATIVE (NEGATIVE) 12/02/19 13:15 12/02/19 11:18 Troponin I < 0.012 Impressions: Head CT 12/02/19 00:00 IMPRESSION: Large bilateral subdural hematomas with varying age blood products as described. No skull fracture. Mild midline shift from right to left due to the size of the right subdural hematoma compared to the left. The right subdural hematoma measures up to 2.6 cm. The left measures up to 1.8 cm. EVIDENCE OF ACUTE STROKE: NO. Chest X-Ray 12/02/19 12:22 IMPRESSION: NO ACUTE RADIOGRAPHIC FINDING IN THE CHEST. Wrist X-Ray 12/04/19 00:00 IMPRESSION: 1. No acute fracture or dislocation of the right wrist. 2. Moderate to severe osteopenia. 3. 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 Moderate osteoarthritis at the mid carpus. Associated soft tissue swelling. Head CT 12/09/19 00:00 IMPRESSION: Bilateral subacute subdural hematomas with some fresh blood on the right an with mild midline shift to the left. Plan Plan of Treatment: And is on comfort care measures only going to long-term care facility with hospice care. Time Spent: Greater than 30 Minutes Stroke Is this a Stroke Patient?: No Acute Heart Failure - Is this a Heart Failure Patient?: No
== END 2019-12-11 13:50 | disposition short-term general hospital (02) | DRG 85 ==
LOC: ER 11:33 → EH 15:11 → 5 16:13 → 3S 18:09 → 4S 12-09 03:08
PROVIDERS: ADMIT Internal Medicine; ATTEND Internal Medicine
DX: S06.5X0A Traumatic subdural hemorrhage without loss of consciousness, initial encounter (principal); G93.41 Metabolic encephalopathy; W19.XXXA Unspecified fall, initial encounter; R29.6 Repeated falls; Z66 Do not resuscitate; E11.65 Type 2 diabetes mellitus with hyperglycemia; G30.9 Alzheimer's disease, unspecified; Z20.828 Contact with and (suspected) exposure to other viral communicable diseases; F02.80 Dementia in other diseases classified elsewhere, unspecified severity, without behavioral disturbance, psychotic disturbance, mood disturbance, and anxiety; I10 Essential (primary) hypertension; R50.9 Fever, unspecified; E78.5 Hyperlipidemia, unspecified; S01.81XA Laceration without foreign body of other part of head, initial encounter; G31.9 Degenerative disease of nervous system, unspecified; M85.841 Other specified disorders of bone density and structure, right hand; B35.1 Tinea unguium; E78.00 Pure hypercholesterolemia, unspecified; R40.2412 Glasgow coma scale score 13-15, at arrival to emergency department; Z51.5 Encounter for palliative care; Z91.81 History of falling; Z79.899 Other long term (current) drug therapy; Z79.84 Long term (current) use of oral hypoglycemic drugs
CPT/HCPCS: 36415; 70450; 71045; 80048; 80053; 81001; 82803; 82962; 83605; 83735; 84484; 85025; 85610; 87040; 87077; 87150; 87186; 87635; 87804; 93005; 93010; 96361; 96365; 99285; J0295; J0692; J1885; J2060; J2270; J2405; J3490; J7030; J7040